=== PATIENT | female | born 1985 | race Caucasian/White ===

== ENCOUNTER → 2020-10-24 13:24 | Outpatient (BNVA) | payer MEDICARE, MEDICAID, SELFPAY | PROVIDERS: Visit Provider Psychiatry & Neurology Psychiatry | DX: F32.9 Major depressive disorder, single episode, unspecified (principal); F19.10 Other psychoactive substance abuse, uncomplicated; Z78.9 Other specified health status; Z59.0 Homelessness | CPT/HCPCS: 90792 ==

== ENCOUNTER 2020-11-13 14:54 | Emergency (ER) | payer MEDICARE, MEDICAID, SELFPAY ==
[2020-11-13 15:22] VITALS: BP 124/86; PULSE 99; RESP 18; TEMP 37.2; O2SAT 95; BMI 40.7
--- NOTE | 2020-11-13 15:31 | W.ED.GENADLT ---
HPI - General Adult General: Chief complaint: General Medical Stated complaint: NAUSEA Time Seen by Provider: 11/13/20 15:31 History of Present Illness: HPI narrative: Patient is a 35-year-old female comes to the ED with malaise and fatigue. Patient says last night she started feeling some generalized fatigue and weakness and just not feeling well. She reports having pain all over her body. She had some nausea last night but it resolved. Patient is from [facility] and has a history of PTSD, major depressive disorder and substance abuse. Patient keeps talking about her brain feeling very quiet. She does not give a lot of details on her symptoms. Patient says she just had her Adderal dose increased up to 3 times a day and started that dosing yesterday. Pt was originally taking adderal once a day. After her third dose of adderall last night is when her symptoms started. She thinks the increased dose of adderral is causing her symptoms. She denies any auditory or visual hallucinations, SI or HI. Patient states she does not want to be admitted into the Neuropsych Unit. Associated symptoms: Reports malaise; Deny chest pain, dyspnea, headache(s), nausea, rash, palpitations or vomiting Review of Systems Const: Reports: fatigue, malaise and other (pain all over her body); Denies: fever(s) or chills Eyes: Denies: change in vision or eye discomfort ENMT: Denies: throat pain, odynophagia, nasal discharge or nasal congestion Card: Denies: chest pain, palpitations, edema, swelling of feet/ankles, dyspnea on exertion or orthopnea Resp: Denies: dyspnea, productive cough or non-productive cough GI: Denies: abdominal pain, nausea, vomiting, diarrhea, constipation or hematochezia : Denies: flank pain, dysuria or hematuria Musc: Denies: neck pain, back pain or extremity swelling Skin/Breast: Denies: rash or new lesions Neuro: Denies: headache(s), numbness in extremities or weakness in extremities Psych: Reports: anxiety; Denies: visual hallucinations, auditory hallucinations, tactile hallucinations, suicidal ideation or homicidal ideation PFS ED PFSH: Medical History History of incarceration Homeless MDD (major depressive disorder) Substance abuse Physical Exam Const: COMMON NORMALS: no acute distress, patient oriented x3 and alert GENERAL APPEARANCE: cooperative and comfortable HENMT: COMMON NORMALS: normocephalic HEAD & SCALP: normocephalic MOUTH: Normal oral and palatal mucosa present THROAT: posterior oropharynx normal and uvula midline Neck/C-Spine: COMMON NORMALS: supple GENERAL: Yes normal visual inspection Resp: COMMON NORMALS: normal respiratory effort, No retractions, No use of accessory muscles and clear to auscultation bilaterally AUSCULTATION: clear to auscultation bilaterally Cardio: COMMON NORMALS: regular rate, regular rhythm, S1 normal heart sound present, S2 normal heart sound present, No gallops present (Cardio), No clicks present (Cardio), No murmurs present (Cardio) and Peripheral pulses 2+ throughout RATE: regular rate RHYTHM: regular rhythm HEART SOUNDS: S1 normal heart sound present and S2 normal heart sound present PERIPHERAL PULSES: Peripheral pulses 2+ throughout GI: COMMON NORMALS: Normal to inspection, nondistended, normoactive bowel sounds present, Soft to palpation, non-tender and no masses PALPATION: Yes Soft to palpation : COMMON NORMALS: Yes no CVA tenderness BLADDER/KIDNEY EXAM: Yes no CVA tenderness Back/Pelvis: COMMON NORMALS: no CVA tenderness Neuro: COMMON NORMALS: patient oriented x3 and moves all extremities SENSORIUM/ORIENTATION: Yes alert Psych: APPEARANCE: Yes grossly normal ATTITUDE: Yes engaged ACTIVITY/MOTOR BEHAVIOR: Yes appropriate eye contact and Yes restless SPEECH: Yes excessive and Yes rapid MOOD & AFFECT: Yes anxious THOUGHT PROCESS: Flight of ideas present THOUGHT CONTENT: No Suicidality present, No Homicidality present and No Hallucination(s) present ATTENTION/CONCENTRATION: Yes attention grossly intact and Yes concentration grossly intact MEMORY/COGNITION: Yes memory grossly intact and Yes cognition grossly intact INSIGHT: Good insight present (Psych) JUDGEMENT: Good judgement present (Psych) OTHER: Patient is talking a lot, but when asked specific directed questions she answers accordingly. Skin: GENERAL SKIN EXAM: dry skin Course Vital Signs: Vital signs: Vital Signs Temperature 99.0 F 11/13/20 15:38 Pulse Rate 99 11/13/20 15:38 Respiratory Rate 18 11/13/20 15:38 Blood Pressure 124/86 11/13/20 15:38 Pulse Oximetry 95 11/13/20 15:38 MDM - General Adult MDM Narrative: Medical decision making narrative: Patient is a 35-year-old female comes to the ED with malaise. Patient said her symptoms started yesterday after she took her increased dose of dextroamphetamine. Patient says before yesterday she was only taking dextroamphetamine once a day and doctor increased her dose to 3 times a day and yesterday was the first time she took 3 doses a day. After third dose she reports feeling some nausea, restless, generalized body pain and more anxious. Here in the ED patient denies any SI, HI or hallucinations. She appears nontoxic and in no acute distress. She does appear to have some ache anxiety and a little fidgety and her speech is rapid. Patient was given a dose of Ativan and some Tylenol for her pain here in the ED and her symptoms improved. Patient told to contact her behavioral health doctor who prescribes the dextroamphetamine tomorrow morning to discuss dose change. I told patient do not take any dose of dextroamphetamine after discharge until she contacts her doctor tomorrow morning. Patient understood and agreed with plan. Lab Data: Attestation: I reviewed the patient's lab results. Labs: Lab Results 11/13/20 11/13/20 11/13/20 Range/Units 16:23 16:23 16:23 WBC 8.1 (4.0-10.0) 10^3/ uL RBC 4.36 (4.1-5.3) 10^6/u L Hgb 12.7 (11.5-15.3) g/dL Hct 39.8 (37.0-47.0) % MCV 91.3 (81-99) fL MCH 29.1 (28.0-34.0) pg MCHC 31.9 (30.0-36.0) g/dL RDW 13.9 (12.1-15.1) % Plt Count 325 (130-400) 10^3/c mm MPV 11.7 H (7.4-10.4) fL Neut % (Auto) 65.3 % Lymph % (Auto) 25.2 % [place] % (Auto) 7.4 % Eos % (Auto) 1.0 % Baso % (Auto) 0.7 % Neut # (Auto) 5.30 (1.8-7.7) 10^3/u L Lymph # (Auto) 2.0 (0.8-4.8) 10^3/u L [place] # (Auto) 0.6 (0.2-0.9) 10^3/u L Eos # (Auto) 0.1 (0.0-0.8) 10^3/u L Baso # (Auto) 0.1 (0.0-0.1) 10^3/u L Nucleated RBC % (a uto) 0 % Nucleated RBCs # 0.0 /100WBC Sodium 139 (136-145) mmol/L Potassium 3.8 (3.5-5.1) mmol/L Chloride 104 (98-107) mmol/L Carbon Dioxide 24 (22-29) mmol/L Anion Gap 14.8 (5-19) BUN 7 (6-20) mg/dL Creatinine 0.6 (0.5-0.9) mg/dL GFR Calculation 113.1 (90-130) mL/min Glucose 99 (65-115) mg/dL Calculated Osmolal ity 286 (285-295) mOsm/k g Calcium 9.1 (8.5-10.5) mg/dL Total Bilirubin 0.4 (0.15-1.2) mg/dL AST 22 (0-32) U/L ALT 17 (0-33) U/L Alkaline Phosphata se 92 (35-105) IU/L Total Protein 7.5 (6.6-8.7) g/dL Albumin 4.6 (3.5-5.2) g/dL Globulin 2.9 (1.3-4.6) g/dL Lipase 18 (13-60) U/L HCG, Qual Negative (Negative) Discharge Plan Discharge Patient Disposition: Home Clinical Impression: Medication adverse effect Qualifiers: Encounter type: initial encounter Qualified Code(s): T50.905A - Adverse effect of unspecified drugs, medicaments and biological substances, initial encounter Condition: Stable Prescriptions: No Action dextroamphetamine-amphetamine [Adderall XR] 20 mg capsule,extended release 24hr 20 mg PO TID RF: 0 amitriptyline 100 mg tablet 200 mg PO .HS 30 Days Qty: 60 RF: 3 clonazepam [Klonopin] 2 mg tablet 1 mg PO BID RF: 0 duloxetine [Cymbalta] 60 mg capsule,delayed release(DR/EC) 60 mg PO DAILY 30 Days Qty: 30 RF: 3 Discharge Orders: Discharge ED (Routine); Ordered 11/13/20 Ordered By: Boom Srinivasan Discharge Diet: Regular Discharge Activity: Increase activity as tolerated Patient Instructions: Adverse Drug Reaction (ED) Activity Restrictions/Additional Instructions: Contact Behavioral Health doctor tomorrow morning to discuss your symptoms after increase in Dextroamphetemine medication and reducing dose. You can go back to taking Single daily dose of dextroamphetamine today and contact your doctor tomorrow. Continue taking all other home medications as prescribed. Return to ED for reevaluation, if you have any worsening symptoms. Coding Level of Care Code ED Business Partner for Daryl Fwalex Exam Comprehensive
[2020-11-13 15:38] VITALS: BP 124/86; PULSE 99; RESP 18; TEMP 37.2; O2SAT 95
[2020-11-13 16:50] LABS: Basophils # 0.1 10^3/uL (0.0-0.1); Basophils % 0.7 %; Eosinophils # 0.1 10^3/uL (0.0-0.8); Hematocrit 39.8 % (37.0-47.0); Hemoglobin 12.7 g/dL (11.5-15.3); Lymphocytes % 25.2 %; Mean Corpuscular HGB Conc 31.9 g/dL (30.0-36.0); Mean Corpuscular Hemoglobin 29.1 pg (28.0-34.0); Mean Corpuscular Volume 91.3 fL (81-99); Mean Platelet Volume 11.7 fL (7.4-10.4); Monocytes # 0.6 10^3/uL (0.2-0.9); Monocytes % 7.4 %; Neutrophils % 65.3 %; Nucleated Red Blood Cells % 0 %; Platelet Count 325 10^3/cmm (130-400); Red Blood Count 4.36 10^6/uL (4.1-5.3); Red Cell Distribution Width 13.9 % (12.1-15.1); White Blood Count 8.1 10^3/uL (4.0-10.0)
[2020-11-13 17:30] LABS: HCG, Serum Qual Negative (Negative)
[2020-11-13] MEDS: LORazepam 2 mg Tablet PO (17:38)
[2020-11-13 17:39] LABS: Alanine Aminotransferase 17 U/L (0-33); Albumin Level 4.6 g/dL (3.5-5.2); Alkaline Phosphatase 92 IU/L (35-105); Anion Gap 14.8 (5-19); Aspartate Amino Transferase 22 U/L (0-32); Blood Urea Nitrogen 7 mg/dL (6-20); Calcium 9.1 mg/dL (8.5-10.5); Carbon Dioxide 24 mmol/L (22-29); Chloride 104 mmol/L (98-107); Globulin 2.9 g/dL (1.3-4.6); Glomerular Filtration Rate 113.1 mL/min (90-130); Glucose 99 mg/dL (65-115); Lipase 18 U/L (13-60); Osmolality Calculated 286 mOsm/kg (285-295); Potassium 3.8 mmol/L (3.5-5.1); Sodium 139 mmol/L (136-145); Total Bilirubin 0.4 mg/dL (0.15-1.2); Total Protein 7.5 g/dL (6.6-8.7)
[2020-11-13] MEDS: acetaminophen 500 mg Tablet 1000 MG PO (17:39)
== END 2020-11-13 18:01 | disposition home or self-care (01) ==
PROVIDERS: Emergency Provider Physician Assistant
DX: T88.7XXA Unspecified adverse effect of drug or medicament, initial encounter (principal); T50.905A Adverse effect of unspecified drugs, medicaments and biological substances, initial encounter
CPT/HCPCS: 80053; 83690; 84703; 85025; 99283

== ENCOUNTER 2020-11-16 15:49 | Emergency (ER) | payer MEDICARE, MEDICAID, SELFPAY ==
--- NOTE | 2020-11-16 16:02 | ED_ITS ---
HPI - Extremity Problem General: Chief complaint: Extremity Problem,Nontraumatic Stated complaint: RIGHT HAND PAIN Time Seen by Provider: 11/16/20 15:55 Source: patient and EMS Mode of arrival: EMS Limitations: no limitations History of Present Illness: HPI Narrative: Patient is a 35-year-old female who presents via EMS for complaints of right hand and wrist pain. Patient states she has been noticing pain and intermittent numbness mainly in the evenings and at night but states this morning she woke up and pain was severe. 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 She has not had any injury or trauma. She has not noticed any changes in color or temperature to the extremity. Associated symptoms: Deny chest pain, fever(s) or rash Review of Systems Const: Denies: fever(s), chills, body aches, fatigue or malaise Card: Denies: chest pain Resp: Denies: dyspnea Musc: Reports: extremity pain and joint pain; Denies: extremity swelling, joint swelling, joint redness or joint warmth Skin/Breast: Denies: rash Neuro: Reports: numbness in extremities (intermittently to R hand/wrist) and sensory changes; Denies: weakness in extremities PFSH ED PFSH: Medical History History of incarceration Homeless MDD (major depressive disorder) Substance abuse Physical Exam Const: COMMON NORMALS: no acute distress, patient oriented x3, no limitations and alert GENERAL APPEARANCE: cooperative NUTRITIONAL APPEARANCE: obese ORIENTATION/CONSCIOUSNESS: Yes awake, Yes oriented to person, Yes oriented to place and Yes oriented to time HENMT: COMMON NORMALS: normocephalic and atraumatic HEAD & SCALP: normocephalic and atraumatic Extremity: GENERAL: Yes normal exam except as noted OTHER: no redness/pallor or swelling noted to R hand/wrist; she does have a positive Tinels' sign; cap refill and pulses normal Neuro: TOMÁS COMA SCALE: document GCS findings Tomás coma scale eye opening: Spontaneous Roxie coma scale verbal response: Orientated Roxie coma scale motor response: Obey commands Roxie coma scale total score: 15 COMMON NORMALS: patient oriented x3, no focal motor deficits (none to R UE; chronic deficits to L UE) and no sensory deficits noted (none to R UE) SENSORIUM/ORIENTATION: Yes alert, Yes oriented to person, Yes oriented to place and Yes oriented to time OTHER: chronic L UE deficts from previous stroke per patient Skin: COMMON NORMALS: no rashes or lesions noted GENERAL SKIN EXAM: no rashes or lesions noted TRAUMA: no lacerations or abrasions Course Vital Signs: Vital signs: Vital Signs Temperature 98.6 F 11/16/20 16:04 Pulse Rate 82 11/16/20 16:04 Respiratory Rate 16 11/16/20 16:04 Blood Pressure 134/91 11/16/20 16:04 Pulse Oximetry 99 11/16/20 16:04 MDM - Extremity (Nontraumatic) MDM Narrative: Medical decision making narrative: History and physical exam is consistent with carpal tunnel vs tendonitis. Will be placed in velcro wrist splint and placed on NSAIDS. Recommend follow up with PCP in 1-2 wls is symptoms persist. Discharge Plan Discharge Patient Disposition: Home Clinical Impression: Carpal tunnel syndrome of right wrist Condition: Stable Prescriptions: New diclofenac sodium 50 mg tablet,delayed release (DR/EC) 50 mg PO Q12H PRN (Reason: pain) Qty: 20 RF: 0 No Action dextroamphetamine-amphetamine [Adderall XR] 20 mg capsule,extended release 24hr 20 mg PO TID RF: 0 amitriptyline 100 mg tablet 200 mg PO .HS 30 Days Qty: 60 RF: 3 clonazepam [Klonopin] 2 mg tablet 1 mg PO BID RF: 0 duloxetine [Cymbalta] 60 mg capsule,delayed release(DR/EC) 60 mg PO DAILY 30 Days Qty: 30 RF: 3 Discharge Orders: Discharge ED (Routine); Ordered 11/16/20 Ordered By: Dalila Thomas Patient Instructions: Carpal Tunnel Syndrome (ED) Activity Restrictions/Additional Instructions: As we discussed you need to wear your splint as much as possible. Please follow-up with your primary care provider in 2 weeks for re-evaluation. Take anti-inflammatory medication as directed and with food. Coding Level of Care Code ED Division Manager for Daryl Trevino
[2020-11-16 16:04] VITALS: BP 134/91; PULSE 82; RESP 16; TEMP 37; O2SAT 99; BMI 42.3
== END 2020-11-16 16:49 | disposition home or self-care (01) ==
PROVIDERS: Emergency Provider Physician Assistant
DX: G56.01 Carpal tunnel syndrome, right upper limb (principal)
CPT/HCPCS: 29125; 99282

== ENCOUNTER 2020-11-21 15:46 | Inpatient (IN) | payer MEDICARE, MEDICAID, SELFPAY ==
[2020-11-21 16:08] VITALS: BP 130/84; PULSE 106; RESP 16; TEMP 36.6; O2SAT 96; BMI 42.3
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
[2020-11-21 18:20] VITALS: PULSE 110; RESP 20; O2SAT 98
--- NOTE | 2020-11-21 18:21 | PC.NURSE ---
pt refusing to leave BP cuff on for blood pressure.
[2020-11-21 19:00] LABS: Basophils # 0.1 10^3/uL (0.0-0.1); Basophils % 0.9 %; Eosinophils # 0.1 10^3/uL (0.0-0.8); Eosinophils % 1.2 %; Hemoglobin 13.3 g/dL (11.5-15.3); Lymphocytes # 2.3 10^3/uL (0.8-4.8); Lymphocytes % 34.2 %; Mean Corpuscular HGB Conc 31.7 g/dL (30.0-36.0); Mean Corpuscular Volume 91.5 fL (81-99); Mean Platelet Volume 11.8 fL (7.4-10.4); Monocytes # 0.5 10^3/uL (0.2-0.9); Neutrophils # 3.78 10^3/uL (1.8-7.7); Neutrophils % 56.7 %; Nucleated Red Blood Cells % 0 %; Platelet Count 356 10^3/cmm (130-400); Red Blood Count 4.59 10^6/uL (4.1-5.3); Red Cell Distribution Width 14.3 % (12.1-15.1); White Blood Count 6.7 10^3/uL (4.0-10.0)
[2020-11-21 19:31] VITALS: BP 145/78; PULSE 78; RESP 18; O2SAT 100
--- NOTE | 2020-11-21 19:41 | PC.NURSE ---
Pt requesting staff call son. Pt son lives in a facility and she calls him daily. Message was left with staff at [phone], per pt request.
[2020-11-21 19:50] LABS: Alanine Aminotransferase 16 U/L (0-33); Albumin Level 4.4 g/dL (3.5-5.2); Alkaline Phosphatase 71 IU/L (35-105); Aspartate Amino Transferase 15 U/L (0-32); Blood Urea Nitrogen 8 mg/dL (6-20); Carbon Dioxide 25 mmol/L (22-29); Chloride 101 mmol/L (98-107); Globulin 3.3 g/dL (1.3-4.6); Glomerular Filtration Rate 113.1 mL/min (90-130); Glucose 98 mg/dL (65-115); Osmolality Calculated 280 mOsm/kg (285-295); Sodium 136 mmol/L (136-145); Total Bilirubin 0.3 mg/dL (0.15-1.2); Total Protein 7.7 g/dL (6.6-8.7)
[2020-11-21 19:57] LABS: Acetaminophen < 5.0 ug/mL (10-30); Salicylate < 0.3 mg/dL (3-10)
[2020-11-21 20:00] VITALS: BP 138/78; PULSE 77; RESP 18; O2SAT 97
[2020-11-21 21:22] VITALS: BP 115/64; PULSE 85; RESP 18; O2SAT 100
[2020-11-21 21:40] LABS: Amphetamines Screen Urine Positive (Negative); Barbiturates Screen Urine Negative (Negative); Benzodiazepines Screen Urine Negative (Negative); Cocaine Screen Urine Negative (Negative); Opiate Screen Urine Negative (Negative); PCP Screen Urine Negative (Negative); THC Screen Urine Negative (Negative)
[2020-11-21 21:46] VITALS: BP 115/64; PULSE 85; RESP 18; TEMP 36.6; O2SAT 100
[2020-11-22 00:03] VITALS: BP 118/65; PULSE 101; RESP 22; TEMP 36.4; O2SAT 97
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
[2020-11-22 06:00] VITALS: O2SAT 97
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
[2020-11-22] MEDS: duloxetine 60 mg Capsule PO (09:39)
[2020-11-22] MEDS: CLONazepam 1 mg Tablet PO ×2 (09:39→17:39)
[2020-11-22 11:16] LABS: Basophils # 0.1 10^3/uL (0.0-0.1); Basophils % 1.1 %; Eosinophils # 0.1 10^3/uL (0.0-0.8); Hematocrit 37.8 % (37.0-47.0); Lymphocytes # 1.6 10^3/uL (0.8-4.8); Mean Corpuscular HGB Conc 31.7 g/dL (30.0-36.0); Mean Corpuscular Hemoglobin 28.6 pg (28.0-34.0); Mean Corpuscular Volume 90.2 fl (81-99); Mean Platelet Volume 12.1 fL (7.4-10.4); Monocytes # 0.4 10^3/uL (0.2-0.9); Monocytes % 8.4 %; Neutrophils % 53.3 %; Nucleated Red Blood Cells % 0 %; Platelet Count 249 10^3/cmm (130-400); Red Blood Count 4.19 10^6/uL (4.1-5.3); Red Cell Distribution Width 14.3 % (12.1-15.1); White Blood Count 4.5 10^3/uL (4.0-10.0)
[2020-11-22 11:44] LABS: Alanine Aminotransferase 13 U/L (0-33); Albumin Level 3.7 g/dL (3.5-5.2); Alkaline Phosphatase 62 IU/L (35-105); Anion Gap 9.6 (5-19); Aspartate Amino Transferase 12 U/L (0-32); Blood Urea Nitrogen 10 mg/dL (6-20); Calcium 8.6 mg/dL (8.5-10.5); Carbon Dioxide 27 mmol/L (22-29); Chloride 106 mmol/L (98-107); Globulin 2.8 g/dL (1.3-4.6); Glomerular Filtration Rate 139.6 mL/min (90-130); Glucose 89 mg/dL (65-115); Osmolality Calculated 285 mOsm/kg (285-295); Potassium 4.6 mmol/L (3.5-5.1); Sodium 138 mmol/L (136-145); Total Bilirubin 0.2 mg/dL (0.15-1.2); Total Protein 6.5 g/dL (6.6-8.7)
[2020-11-22 14:00] VITALS: BP 114/65; PULSE 77; RESP 16; TEMP 36.5; O2SAT 96
[2020-11-22] MEDS: ibuprofen 600 mg Tablet PO (15:53)
[2020-11-22 20:11] VITALS: BP 103/66; PULSE 83; RESP 18; TEMP 36.6; O2SAT 95
[2020-11-22] MEDS: amitriptyline 25 mg Tablet 200 MG PO (20:28)
[2020-11-23 06:00] VITALS: BP 113/66; PULSE 73; RESP 16; TEMP 36.7; O2SAT 98
[2020-11-23] MEDS: CLONazepam 1 mg Tablet PO ×2 (08:09→21:39)
[2020-11-23] MEDS: duloxetine 60 mg Capsule PO (08:09)
[2020-11-23 14:00] VITALS: BP 113/66; PULSE 73; RESP 16; TEMP 36.7; O2SAT 98
--- NOTE | 2020-11-23 17:26 | P.PN_ITS ---
Subjective NPU Subjective: Interval history: Kailee presents today reporting that she in fact thinks she stopped the Adderall but that she was going to stop it. She reports that when her Adderall was increased she started having concerning symptoms. So she was not planning on taking it anymore which would explain the continued positive UDS. We discussed concerns about her account of the story given her significant history of addiction. We discussed the risk benefits and alternatives of initiating Strattera which she reports she has had in the past with some success and she understood agreed to proceed as documented in this note. Mental Status Exam MSE Comments: This is an obese versus morbidly obese white female with hospital scrubs on with limited grooming and eye contact. No abnormal movements except for mild psychomotor retardation. More cooperative with exam in mild distress. Speech was more normal rate and volume. Mood described as okay I guess, affect subdued and somewhat irritable. Thought process organized, thought content: Patient denied suicidal or homicidal ideation currently there were no delusions reported or noted, she denies any auditory or visual elucidation. Attention and concentration were intact and memory was unreliable but none were formally tested. She is alert and oriented x3. Insight and judgment are impaired and impulse control is limited. Vitals/I&O/Wt Last Vital Signs Temp 98.6 F 11/23/20 18:18 Pulse 91 11/23/20 18:18 Resp 18 11/23/20 18:18 BP 118/70 11/23/20 18:18 Pulse Ox 99 11/23/20 18:18 Weight last 48 hrs Weight 122.47 kg Data NPU : 11/22/20 11:00 11/22/20 11:00 A&P Additional A&P Information (1) Carpal tunnel syndrome of right wrist: (2) Psychosis: (3) Homicidal ideations: (4) Homeless: (5) History of incarceration: (6) Substance abuse: (7) MDD (major depressive disorder): This is a 35-year-old white female with a long history of mental health, addiction and legal struggles who presents with question of psychosis, possible amphetamine versus methamphetamine overuse with significant services in place. 1. Continue current medication. Agree with discontinuation of Adderall, will start Strattera 40 mg every morning with meals in the morning with a plan to titrate to 80 mg in 1 week. 2. Continue every 15 minute checks for safety. 3. Encourage individual, group and milieu therapies. 4. Encourage sober living treatment after discharge at the highest level of care to which he is willing to commit. She is part of a program at [facility] and has a fairly robust outpatient treatment regimen to deal with her significant challenges. Involuntary Hold Information 96 Hour Hold: 96 Hour Hold Ending Date: 11/27/20 96 Hour Hold Ending Time: 18:40 Attestations NPU Medical Necessity Statement*: Inpatient hospitalization is medically necessary and the clinically appropriate intervention at this time. We will monitor medications and make changes as indicated. Likely length of stay 2-4 days. Coding Level of Care Code Acute Cnc Lathe Programmer for Daryl Trevino
[2020-11-23 18:18] VITALS: BP 118/70; PULSE 91; RESP 18; TEMP 37; O2SAT 99
[2020-11-23] MEDS: amitriptyline 25 mg Tablet 200 MG PO (21:40)
[2020-11-24 05:20] VITALS: BMI 42.3
[2020-11-24 06:00] VITALS: BP 119/73; PULSE 68; RESP 16; TEMP 36.5; O2SAT 98
[2020-11-24] MEDS: CLONazepam 1 mg Tablet PO ×2 (08:27→21:01)
[2020-11-24] MEDS: duloxetine 60 mg Capsule PO (08:27)
[2020-11-24] MEDS: atomoxetine 40 mg Capsule PO (08:27)
[2020-11-24] MEDS: ibuprofen 600 mg Tablet PO (12:02)
--- NOTE | 2020-11-24 13:14 | P.PN_ITS ---
Subjective NPU Subjective: Interval history: Kailee presents today endorsing improvement overall. She endorses not being as tired as she is been since admission. She began discussing what discharge might look like. We reviewed the fact that she is on a hold. She reports that her suicidal thinking is resolving we agreed to have her [facility] program liaisons connect with her and about safety for discharge. Mental Status Exam MSE Comments: This is an obese versus morbidly obese white female with hospi vern scrubs on with limited grooming and eye contact. No abnormal movements except for mild psychomotor retardation. More cooperative with exam in mild distress. Speech was more normal rate and volume. Mood described as okay I guess, affect subdued and somewhat irritable. Thought process organized, thought content: Patient denied suicidal or homicidal ideation currently there were no delusions reported or noted, she denies any auditory or visual elucidation. Attention and concentration were intact and memory was unreliable but none were formally tested. She is alert and oriented x3. Insight and judgment are impaired and impulse control is limited. Vitals/I&O/Wt Last Vital Signs Temp 97.7 F 11/24/20 06:00 Pulse 68 11/24/20 06:00 Resp 16 11/24/20 06:00 BP 119/73 11/24/20 06:00 Pulse Ox 98 11/24/20 06:00 11/23/20 11/24/20 11/24/20 22:59 06:59 14:59 Intake Total 240 / 240 Balance 240 / 240 Weight last 48 hrs Weight 122.47 kg Data NPU : 11/22/20 11:00 11/22/20 11:00 A&P Additional A&P Information (1) Carpal tunnel syndrome of right wrist: (2) Psychosis: (3) Homicidal ideations: (4) Homeless: (5) History of incarceration: (6) Substance abuse: (7) MDD (major depressive disorder): This is a 35-year-old white female with a long history of mental health, addiction and legal struggles who presents with question of psychosis, possible amphetamine versus methamphetamine overuse with significant services in place. 1. Continue current medication. 2. Continue every 15 minute checks for safety. 3. Encourage individual, group and milieu therapies. 4. Encourage sober living treatment after discharge at the highest level of care to which he is willing to commit. She is part of a program at [facility] and has a fairly robust outpatient treatment regimen to deal with her significant challenges. Involuntary Hold Information 96 Hour Hold: 96 Hour Hold Ending Date: 11/27/20 96 Hour Hold Ending Time: 18:40 Attestations NPU Medical Necessity Statement*: Inpatient hospitalization is medically necessary and the clinically appropriate intervention at this time. We will monitor medications and make changes as indicated. Likely length of stay 1-3 days. Coding Level of Care Code Acute High Risk Ob for Daryl Trevino
[2020-11-24 14:16] VITALS: BP 122/66; PULSE 88; RESP 16; TEMP 36.8; O2SAT 99
[2020-11-24] MEDS: diphenhydrAMINE 50 mg Capsule PO (17:14)
[2020-11-24] MEDS: amitriptyline 25 mg Tablet 200 MG PO (21:01)
[2020-11-24 21:51] VITALS: BP 107/59; PULSE 99; RESP 19; TEMP 37.2; O2SAT 98
[2020-11-25 06:00] VITALS: BP 131/75; PULSE 84; RESP 17; TEMP 36.9; O2SAT 98
[2020-11-25] MEDS: atomoxetine 40 mg Capsule PO (08:00)
[2020-11-25] MEDS: CLONazepam 1 mg Tablet PO ×2 (08:00→21:18)
[2020-11-25] MEDS: duloxetine 60 mg Capsule PO (08:00)
[2020-11-25 14:00] VITALS: BP 149/84; PULSE 92; RESP 17; TEMP 37; O2SAT 98
--- NOTE | 2020-11-25 14:14 | PM.NPN ---
Subjective NPU Subjective: Interval history: Kailee presents today reporting that she is feeling better each day. She denies any problems with the Strattera and understands the titration schedule that is being proposed. She is endorsing feeling she can contract for safety outside of the hospital. Her outpatient treatment team reports that they could support discharge in the morning. Mental Status Exam MSE Comments: This is an obese versus morbidly obese white female with hospital scrubs on with limited grooming and eye contact. No abnormal movements except for mild psychomotor retardation. More cooperative with exam in no acute distress. Speech was more normal rate and volume. Mood described as better, affect less subdued. Thought process organized, thought content: Patient denied suicidal or homicidal ideation currently there were no delusions reported or noted, she denies any auditory or visual elucidation. Attention and concentration were intact and memory was more reliable but none were formally tested. She is alert and oriented x3. Insight and judgment are limited, but improving and impulse control is limited. Vitals/I&O/Wt Last Vital Signs Temp 98.5 F 11/25/20 06:00 Pulse 84 11/25/20 06:00. Resp 17 11/25/20 06:00 BP 131/75 11/25/20 06:00 Pulse Ox 98 11/25/20 06:00 Data NPU : 11/22/20 11:00 11/22/20 11:00 A&P Additional A&P Information (1) Carpal tunnel syndrome of right wrist: (2) Psychosis: (3) Homicidal ideations: (4) Homeless: (5) History of incarceration: (6) Substance abuse: (7) MDD (major depressive disorder): This is a 35-year-old white female with a long history of mental health, addiction and legal struggles who presents with question of psychosis, possible amphetamine versus methamphetamine overuse with significant services in place. 1. Continue current medication. 2. Continue every 15 minute checks for safety. 3. Encourage individual, group and milieu therapies. 4. Encourage sober living treatment after discharge at the highest level of care to which he is willing to commit. 5. Plan for discharge in the morning. Involuntary Hold Information 96 Hour Hold: 96 Hour Hold Ending Date: 11/27/20 96 Hour Hold Ending Time: 18:40 Attestations NPU Medical Necessity Statement*: Inpatient hospitalization is medically necessary and the clinically appropriate intervention at this time. We will monitor medications and make changes as indicated. Likely length of stay 1-2 days. Coding Level of Care Code Acute Pre Wave Assembler for Daryl Trevino
[2020-11-25 20:17] VITALS: BP 128/64; PULSE 89; RESP 16; TEMP 36.8; O2SAT 92
[2020-11-25] MEDS: amitriptyline 25 mg Tablet 200 MG PO (21:18)
[2020-11-26 05:56] VITALS: BP 110/68; PULSE 79; RESP 18; TEMP 36.3; O2SAT 98
[2020-11-26] MEDS: duloxetine 60 mg Capsule PO (08:29)
[2020-11-26] MEDS: CLONazepam 1 mg Tablet PO (08:29)
[2020-11-26] MEDS: atomoxetine 40 mg Capsule PO (08:30)
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
[2020-11-26 12:31] VITALS: BP 110/68; PULSE 79; RESP 18; TEMP 36.3; O2SAT 98
--- NOTE | 2020-11-26 12:31 | NPU.GN ---
[facility] Topic: Depression Bingo / Worrisome thoughts General Mood of Group: Kailee participated because she was on 96 hour hold she will possibly DC today and needs referral to [facility].
== END 2020-11-26 14:38 | disposition home or self-care (01) | DRG 885 ==
LOC: ER 18:10 → NP 21:00
PROVIDERS: Admitting Provider Psychiatry & Neurology Psychiatry; Emergency Provider Emergency Medicine; Visit Provider Psychiatry & Neurology Psychiatry
DX: F29 Unspecified psychosis not due to a substance or known physiological condition (principal); Z68.41 Body mass index [BMI] 40.0-44.9, adult; F32.9 Major depressive disorder, single episode, unspecified; F90.9 Attention-deficit hyperactivity disorder, unspecified type; F15.90 Other stimulant use, unspecified, uncomplicated; Z59.0 Homelessness; Z86.73 Personal history of transient ischemic attack (TIA), and cerebral infarction without residual deficits; E66.01 Morbid (severe) obesity due to excess calories; G56.01 Carpal tunnel syndrome, right upper limb; R45.850 Homicidal ideations
CPT/HCPCS: 36415; 80053; 80306; 80307; 85025; 99285; Q0163

== ENCOUNTER 2020-12-29 11:46 | Emergency (ER) | payer MEDICARE, MEDICAID, SELFPAY ==
[2020-12-29 11:50] VITALS: BP 162/122; PULSE 93; RESP 14; TEMP 36.6; O2SAT 100; BMI 39.1
--- NOTE | 2020-12-29 11:55 | ED_ITS ---
HPI - Head Injury General: Chief complaint: Fall Stated complaint: HEAD PAIN S/P FALL FROM CHAIR Time Seen by Provider: 12/29/20 11:52 Source: patient Mode of arrival: EMS Limitations: no limitations History of Present Illness: HPI Narrative: 35-year-old female presents to the ER today via EMS after a fall this a.m. Patient reports she was sitting on a ledge when she shifted her balance too much and fell to the left, hitting head on floor tiles in wheelchair. Patient has a history of a CVA with left-sided paralysis. Patient reports she was able to get up but immediately has noticed pain in the left side of her head. Patient reports dizziness and seeing stars but denies any blurry vision or double vision. Patient reports she also has pain in her left side from the left shoulder to the left calf. She has normal range of motion of the left lower leg and that is at her baseline however she has pain in the area of the clavicle. Patient has total paralysis of the left upper arm but is nontender when palpated. Patient denies any prior head injury. Patient does not take any blood thinners. Patient denies ear pain, congestion, runny nose, sore throat, chest pain, shortness of breath, nausea, vomiting, diarrhea, constipation, change in bowel or bladder habits. MD Complaint: head injury Onset (ago): hour(s) Mechanism of Injury: fall Place: home Loss of Consciousness: no Location of injury: occipital Quality: throbbing Other Injuries: upper extremity (Left clavicle/shoulder) Associated symptoms: Deny nausea, neck pain or vomiting Review of Systems Const: Reports: body aches; Denies: fever(s) or chills Eyes: Reports: change in vision; Denies: blurry vision ENMT: Denies: throat pain, nasal discharge or nasal congestion Card: Denies: chest pain or palpitations Resp: Denies: dyspnea or wheezing GI: Denies: abdominal pain, nausea, vomiting, diarrhea or constipation Musc: Reports: extremity pain (L clavicle/shoulder); Denies: neck pain or back pain Skin/Breast: Denies: rash Neuro: Reports: headache(s) and dizziness PFS ED PFSH: Medical History History of incarceration Homeless MDD (major depressive disorder) Substance abuse Physical Exam Const: COMMON NORMALS: no acute distress and patient oriented x3 GENERAL APPEARANCE: other (paralysis of L arm) NUTRITIONAL APPEARANCE: obese ORIENTATION/CONSCIOUSNESS: Yes awake HENMT: COMMON NORMALS: normocephalic, atraumatic, TM's normal bilaterally, Normal external nose present and Normal nasal mucous membranes and turbinates present HEAD & SCALP: normocephalic and atraumatic; no contusion FACE & SINUS: normal facial exam NOSE: Normal external nose present and Normal nasal mucous membranes and turbinates present TYMPANIC MEMBRANE: TM's normal bilaterally THROAT: posterior oropharynx normal Eye: COMMON NORMALS: Equal, round and reactive pupils present, EOMs intact bilaterally and conjunctivae normal GENERAL EYE: appearance normal, both eyes and all related structures CONJUNCTIVA: Yes conjunctivae normal PUPIL: Yes Equal, round and reactive pupils present Neck/C-Spine: COMMON NORMALS: full ROM and no lymphadenopathy Lymph: LYMPHATIC: no lymphadenopathy noted Resp: COMMON NORMALS: normal respiratory effort, No retractions and clear to auscultation bilaterally EFFORT & INSPECTION: Yes able to speak in complete sentences AUSCULTATION: clear to auscultation bilaterally Cardio: COMMON NORMALS: regular rate, regular rhythm and No murmurs present (Cardio) RATE: regular rate RHYTHM: regular rhythm GI: COMMON NORMALS: Normal to inspection, nondistended, normoactive bowel sounds present, Soft to palpation and non-tender PALPATION: Yes Soft to palpation Back/Pelvis: COMMON NORMALS: thoracic and lumbar spine normal to inspection Extremity: GENERAL: Yes normal exam except as noted LEFT UPPER EXTREMITY: Yes clavicle Left clavicle: Yes inspection (normal) and Yes palpation (tender) Neuro: COMMON NORMALS: patient oriented x3, moves all extremities (except L arm due to hx of paralysis), no focal motor deficits and no sensory deficits noted SPEECH: speech normal GAIT: Yes Unable to assess gait Psych: COMMON NORMALS: mental status grossly normal, Normal thought process present and cooperative THOUGHT PROCESS: Normal thought process present Skin: COMMON NORMALS: no rashes or lesions noted GENERAL SKIN EXAM: no rashes or lesions noted Course ED course: Patient presents after a fall this morning and hitting her head on tile in the wheelchair. Patient exam is mostly unremarkable other than mild tenderness of the left clavicle. Given history of paralysis and inability to break her fall, will go ahead with CT at this time although neuro exam is josefina l. We will also check the clavicle on x-ray to rule out any fracture as patient has paralysis to that side and pain scale is abnormal due to the paralysis. Vital Signs: Vital signs: Vital Signs Temperature 97.8 F 12/29/20 11:50 Pulse Rate 93 12/29/20 11:50 Respiratory Rate 14 12/29/20 11:50 Blood Pressure 162/122 12/29/20 11:50 Pulse Oximetry 100 12/29/20 11:50 MDM - Head Injury MDM Narrative: Medical decision making narrative: LikelyPatient presented to the ER today after falling at home and hitting head. She complained of some left clavicle pain also. CT of head was performed and is normal. Clavicle x- ray is normal. Superficial contusion versus mild concussion. Neuro exam is normal. Conservative treatment recommended. Concussion protocol including b rain rest recommended. Apply ice to area on clavicle with pain. Follow-up with PCP in 3 to 5 days. Patient verbalized understanding is in agreement with this treatment plan. Imaging Data^: CT Head: Radiologist's impression: [id number] [address] [address] Scan Report Signed Patient: Kailee Huang Unit #: [id number] : 1985 Age/Sex: 35 / F ADM Date: 12/29/20 Loc: ER Room/Bed: Attending Dr: Ordering Provider/Ordering MD: Viri Landeros Date of Service: 12/29/20 Procedure(s): CT head wo con* [id number] Accession Number(s): [id number] Report Number: [id number] PROCEDURE INFORMATION: Exam: CT Head Without Contrast Exam date and time: 12/29/2020 11:54 AM Age: 35 years old Clinical indication: Injury or trauma; Blunt trauma (contusions or hematomas); Without loss of consciousness; Patient HX: Fall frim wheelchair - HX of CVA w L sided paralysis; Additional info: Fall; HX of paralysis L side TECHNIQUE: Imaging protocol: Computed tomography of the head without contrast. Radiation optimization: All CT scans at this facility use at least one of these dose optimization techniques: automated exposure control; mA and/or kV adjustment per patient size (includes targeted exams where dose is matched to clinical indication); or iterative reconstruction. COMPARISON: No relevant prior studies available. RADIATION DOSE METRICS: Total DLP (mGy-cm): 1507.69 FINDINGS: Brain: There is extensive encephalomalacia in the territory of the right middle cerebral artery compatible with old infarct in the right frontal, parietal and temporal lobes. There is no acute hemorrhage, edema or mass effect. Cerebral ventricles: No ventriculomegaly. Enlargement of the right lateral ventricle compared to the left is compatible with ex vacuo type changes. Paranasal sinuses: Visualized sinuses are unremarkable. No fluid levels. Mastoid air cells: Visualized mastoid air cells are well aerated. Bones/joints: Postoperative changes right frontal and parietal calvarium are noted. No acute bony abnormality. Soft tissues: Unremarkable. CT/CT head wo con* [id number] IMPRESSION: No acute intracranial abnormality. Radiation Dose CTDIVOL = (mGy): DLP = 1507.69 (mGy-cm) Dictated By: Key Kendall Signed By: Key Kendall Signed Date/Time: 12/29/20 1324 Other Xray: Radiologist's impression: [address] [address] XRay Report Signed Patient: Kailee Huang Unit #: [id number] : 1985 Age/Sex: 35 / F ADM Date: 12/29/20 Loc: ER Room/Bed: Attending Dr: Ordering Provider/Ordering MD: Viri Landeros Date of Service: 12/29/20 Procedure(s): [place] [id number] Accession Number(s): [id number] Report Number: [id number] PROCEDURE INFORMATION: Exam: XR Left Clavicle, Complete Exam date and time: 12/29/2020 11:54 AM Age: 35 years old Clinical indication: Injury or trauma; Fall; Blunt trauma (contusions or hematomas); Shoulder; Left; Additional info: Fall with shoulder/clavicle pain TECHNIQUE: Imaging protocol: XR Left clavicle complete. Views: Any number of views. COMPARISON: No relevant prior studies available. FINDINGS: Bones/joints: Normal. No fracture or dislocation. The visualized glenohumeral joint and ribs are intact. Acromioclavicular joint alignment is appropriate. Soft tissues: Normal. XR/[place] [id number] IMPRESSION: No acute findings. Dictated By: Key Kendall Signed By: Key Kendall Signed Date/Time: 12/29/20 1258 DD/ 1257 Critical Care Time Critical Care Time: Critical Care Time: No Discharge Plan Discharge Patient Disposition: Home Clinical Impression: Contusion of head Qualifiers: Encounter type: initial encounter Contusion of head detail: other part of head Qualified Code(s): S00.83XA - Contusion of other part of head, initial encounter Contusion of left shoulder Qualifiers: Encounter type: initial encounter Qualified Code(s): S40.012A - Contusion of left shoulder, initial encounter Condition: Stable Prescriptions: No Action clonazepam [Klonopin] 2 mg tablet 1 mg PO BID RF: 0 duloxetine [Cymbalta] 60 mg capsule,delayed release(DR/EC) 60 mg PO DAILY 30 Days Qty: 30 RF: 3 diclofenac sodium 50 mg tablet,delayed release (DR/EC) 50 mg PO Q12H PRN (Reason: pain) Qty: 20 RF: 0 amitriptyline 100 mg tablet 200 mg PO BEDTIME RF: 0 atomoxetine 40 mg Capsule 40 mg PO 0800 30 Days Qty: 60 RF: 1 Discharge Orders: Discharge ED (Routine); Ordered 12/29/20 Ordered By: Viri Landeros Discharge Diet: Usual diet Discharge Activity: Resume usual activity Patient Instructions: Opioid Safety Activity Restrictions/Additional Instructions: Continue home medications. Apply ice to areas of pain. Tylenol alternating with Motrin for pain. Follow-up with PCP in 3 to 5 days. Return to the ER with any new or worsening symptoms. Coding Level of Care Code ED [place] Setter for Daryl Trevino Exam Comprehensive
[2020-12-29] MEDS: ketorolac 30 mg/mL INJ IM (14:44)
[2020-12-29 14:50] VITALS: BP 160/108; PULSE 88; RESP 18; O2SAT 100
== END 2020-12-29 14:51 | disposition home or self-care (01) ==
PROVIDERS: Emergency Provider Physician Assistant
DX: S00.83XA Contusion of other part of head, initial encounter (principal); S40.012A Contusion of left shoulder, initial encounter; W05.0XXA Fall from non-moving wheelchair, initial encounter; Z86.73 Personal history of transient ischemic attack (TIA), and cerebral infarction without residual deficits
CPT/HCPCS: 70450; 73000; 96372; 99283; J1885

== ENCOUNTER → 2020-12-31 10:15 | Outpatient (BNVA) | payer MEDICARE, MEDICAID, SELFPAY | PROVIDERS: Visit Provider Psychiatry & Neurology Psychiatry | DX: F32.9 Major depressive disorder, single episode, unspecified (principal); F90.9 Attention-deficit hyperactivity disorder, unspecified type; F19.10 Other psychoactive substance abuse, uncomplicated; Z78.9 Other specified health status; Z59.0 Homelessness | CPT/HCPCS: 99214 ==

== ENCOUNTER 2021-01-01 16:36 | Inpatient (IN) | payer MEDICARE, MEDICAID, SELFPAY ==
[2021-01-01] VITALS (11 sets, daily range): BP systolic 151–178; BP diastolic 83–117; PULSE 69–97; RESP 11–29; TEMP 36.4–37.2; O2SAT 96–100; BMI 42.3
--- NOTE | 2021-01-01 17:04 | PC.NURSE ---
Call to Mare with [place] [employer] for accidental overdose. Pt stated she took 8 tabs of wellbutrin 300mg from 7AM till 1200. She state she could not read the bottle so I justs keep taking them Recommendations EKG, lab and observe for upto 25 hours for 1/2 life from 10-19 hours possible 25 hours.
--- NOTE | 2021-01-01 17:49 | ECG_ITS ---
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 Measurements Intervals [place] Rate: 91 P: 45 [place]: 188 QRS: -14 QRSD: 141 T: 3 QT: 386 QTc: 477 Interpretive Statements SINUS RHYTHM LEFT BUNDLE BRANCH BLOCK [120+ ms QRS DURATION, 80+ ms Q/S IN V1/V2, 85+ ms R IN I/aVL/V5/V6] No previous ECG available for comparison Electronically Signed On 01-02-2021 0:00:13 CDT by Richa Hernandez M.D. [id number] jasper
--- NOTE | 2021-01-01 18:02 | PC.PHAR ---
PT STATES SHE TAKES CARE OF HER OWN MEDICATIONS-PT STATES SHE DOESNT TAKE ADDERALL AND STATES SHE DIDNT PICK IT UP [facility] LAST FILLED ON 12/14/20 20MG TID [facility] STATES PT PICKED UP ON 12/17/20 30D/S PER PTS DISCHARGE PACKET ON 11/26/20 THIS MEDICATION WAS DCED-NOTES ARE MADE IN THE PHARMACY COMMENTS
[2021-01-01] MEDS: sodium bicarbonate 150 MEQ in dextrose 5% 1,000 ML 100 MEQ IV (18:19)
--- NOTE | 2021-01-01 18:23 | XRR_ITS ---
PROCEDURE INFORMATION: Exam: XR Chest Exam date and time: 01/01/2021 6:23 PM Age: 35 years old Clinical indication: Other: Overdose; Additional info: Od TECHNIQUE: Imaging protocol: XR of the chest. Views: 1 view. COMPARISON: [place] [id number] 12/29/2020 11:59 AM FINDINGS: Lungs: Lungs are clear bilaterally. Pleural spaces: No pleural effusion. No pneumothorax. Heart/Mediastinum: The cardiac silhouette is mildly enlarged. This may be due at least in part to AP technique. Bones/joints: Unremarkable for age. XR/XR chest 1V portable [id number] IMPRESSION: 1. No acute cardiopulmonary process. 2. The cardiac silhouette is mildly enlarged. This may be due at least in part to AP technique.
[2021-01-01] MEDS: sodium chloride 0.9% 1,000 ML 999 ML IV (18:27)
[2021-01-01] MEDS: LORazepam 2 mg/mL INJ 1 mL IVP (18:27)
--- NOTE | 2021-01-01 18:35 | ED_ITS ---
Documented by User: Benjamin Stovall MD 01/02/21 11:06 HPI - General Adult General: Chief complaint: Overdose Stated complaint: ATAXIA Time Seen by Provider: 01/01/21 17:26 History of Present Illness: HPI narrative: CC: AMS HPI: [35]yo patient w/ hx of L sided hemiplegia from prior CVA, on wellbutrin for psych issues, prior hx of seizure BIBA for AMS after patient was found down by house mate after ingesting wellbutrin and not acting normal. Patient reported taking 6-8 tabs of 300mg XL Wellbutrin throughout the day. Patient also reported taking 1mg of klonopin at 5pm. No other coingestions Denies any suicidal or homoicidal ideation or active hallucination. Patient reports that she wanted take stimulants to get through her day but also realized I needed help for this addiction. No reported episodes of seizures after medicnie Onset: Unknown Duration: ongoing, x 1 day Location: home Severity: severe Review of Systems Narrative: Constitutional: No fever, no chills. HEENT: No vision changes CV: No chest pain, no palpitations PULM: no cough, no dyspnea. GI: No abdominal pain, no N/V/D. : No dysuria MSKEL: No muscle pain SKIN: No new rashes, no lesions. NEURO: No headache, no focal weakness. +gait instability HEME: No visible bruises PSYCH: Normal mood PFSH ED PFSH: Medical History History of incarceration Homeless MDD (major depressive disorder) Substance abuse Female Reproductive History: Date of last menstrual period: 12/13/20 Physical Exam Narrative: EXAM NARRATIVE: Head: Atraumatic Eyes: PERRL, conjunctiva without injection ENT: Mucous membrane moist NECK: Supple without lymphadenopathy LUNGS: LCTA bilaterally CV: RRR ABDOMEN: Soft, nontender in all quadrants EXTREMITY: Normal ROM SKIN: No rash or erythema, no signs of track barry, no visible patches, no noticeable cellulitis NEURO: AAOX3, GCS of 15, moving all extremities PSYCH: Cooperative or normal affect Course Vital Signs: Vital signs: Vital Signs Temperature 98.3 F 01/02/21 08:00 Pulse Rate 93 01/02/21 08:00 Respiratory Rate 35 H 01/02/21 08:00 Blood Pressure 140/90 01/02/21 08:00 Pulse Oximetry 96 01/02/21 08:00 MDM - General Adult MDM Narrative: Medical decision making narrative: [35]yo patient w/ hx of wellbutrin use BIBA for concern of medication overdose. GCS 15, AAOx3. Airway maintained. No signs of trauma including bruises, hematoma, lacerations, or basilar skull fracture. NO increased work of breathing or tachypnea on presentation, no suspicion for toxic alcohol vs ASA overdose vs DKA. DDx broad including intracranial injuries, metabolic phenomenon, substance intoxication/withdrawal, and sepsis. Toxidrome Findings: Negative. No rigidity or clonus of LE ankle/knee reflexes, no diaphoresis, pupils mid-ranged equal and reactive to light, no signs of track barry/body patches, normal bowel sounds, and bladder non-palpable/ non- distended. EKG showing regular sinus rhythm at HT of [91]. Normal axis. No ST elevat ions/depressions to suggest coronary occlusion. QRS of 141, QTc of 477 Workup: CBC, CMP, acetaminophen level, salicylate level, UA, ECG, UA/UDS Intervention: sodium bicarb drip given QRS widening Case was discussed with [place] poison specialist Mare with recommendation for admission for observation for seizure for 12 hrs. Patient given 1 dose of ativan in the ED. QRS of 141, will repeat EKG after starting on sodium bicarb drip. Disposition: Admission for seizure concerns Lab Data: Labs: Lab Results 01/01/21 01/01/21 01/01/21 18:25 18:25 18:25 WBC 8.6 10^3/uL 10^3/ uL (4.0-10.0) RBC 3.87 10^6/uL L 10 ^6/uL (4.1-5.3) Hgb 11.1 g/dL L g/dL (11.5-15.3) Hct 35.5 % L % (37.0-47.0) MCV 91.7 fl fl (81-99) MCH 28.7 pg pg (28.0-34.0) MCHC 31.3 g/dL g/dL (30.0-36.0) RDW 14.4 % % (12.1-15.1) Plt Count 271 10^3/cmm 10^3 /cmm (130-400) MPV 11.7 fL H fL (7.4-10.4) Neut % (Auto) 66.7 % % Lymph % (Auto) 23.8 % % Hendry % (Auto) 7.3 % % Eos % (Auto) 0.9 % % Baso % (Auto) 0.7 % % Neut # (Auto) 5.76 10^3/uL 10^3 /uL (1.8-7.7) Lymph # (Auto) 2.1 10^3/uL 10^3/ uL (0.8-4.8) Hendry # (Auto) 0.6 10^3/uL 10^3/ uL (0.2-0.9) Eos # (Auto) 0.1 10^3/uL 10^3/ uL (0.0-0.8) Baso # (Auto) 0.1 10^3/uL 10^3/ uL (0.0-0.1) Nucleated RBC % (a uto) 0 % % Nucleated RBCs # 0.0 /100WBC /100W BC Specimen Type Sample Site ABG pH ABG pCO2 ABG pO2 ABG HCO3 ABG Base Excess Adrián Test Hematocrit O2 Delivery Device [employer] Server ID Sodium 140 mmol/L mmol/L (136-145) Potassium 4.6 mmol/L mmol/L (3.5-5.1) Chloride 103 mmol/L mmol/L (98-107) Carbon Dioxide 24 mmol/L mmol/L (22-29) Anion Gap 17.6 (5-19) BUN 12 mg/dL mg/dL (6-20) Creatinine 0.6 mg/dL mg/dL (0.5-0.9) GFR Calculation 113.1 mL/min mL/m in (90-130) Glucose 86 mg/dL mg/dL (65-115) Calculated Osmolal ity 289 mOsm/kg mOsm/ kg (285-295) Calcium 9.5 mg/dL mg/dL (8.5-10.5) Total Bilirubin 0.2 mg/dL mg/dL (0.15-1.2) AST 16 U/L U/L (0-32) ALT 14 U/L U/L (0-33) Alkaline Phosphata se 70 IU/L IU/L (35-105) Troponin T Gen 5 n g/L 9 ng/L ng/L (0-10) Total Protein 7.0 g/dL g/dL (6.6-8.7) Albumin 4.3 g/dL g/dL (3.5-5.2) Globulin 2.7 g/dL g/dL (1.3-4.6) Lipase 14 U/L U/L (13-60) Urine Color Urine Appearance Urine pH Ur Specific Gravit y Urine Protein Urine Glucose (UA) Urine Ketones Urine Blood Urine Nitrate Urine Bilirubin Urine Urobilinogen Ur Leukocyte Ana ase Urine HCG, Qual Salicylates < 0.3 mg/dL L mg/ dL (3-10) Urine Opiates Scre en Acetaminophen < 5.0 ug/mL L ug/ mL (10-30) Ur Barbiturates Sc reen Ur Phencyclidine S crn Ur Amphetamines Sc reen U Benzodiazepines Scrn Urine Cocaine Scre en U Marijuana (THC) Screen SARS-CoV-2 Ag (Rap id) 01/01/21 01/01/21 01/01/21 18:35 19:15 19:15 WBC RBC Hgb Hct MCV MCH MCHC RDW Plt Count MPV Neut % (Auto) Lymph % (Auto) Hendry % (Auto) Eos % (Auto) Baso % (Auto) Neut # (Auto) Lymph # (Auto) Hendry # (Auto) Eos # (Auto) Baso # (Auto) Nucleated RBC % (a uto) Nucleated RBCs # Specimen Type Arterial Sample Site Radial, right ABG pH 7.43 (7.35-7.45) ABG pCO2 39.8 mmHg mmHg (35-45) ABG pO2 96.9 mmHg mmHg (80.0-100.0) ABG HCO3 26.1 mmol/L H mmo l/L (22-26) ABG Base Excess 1.6 mmol/L mmol/L (-2.0-2.0) Adrián Test Pos Hematocrit 35.9 % L % (37-47) O2 Delivery Device Room air [employer] Server ID Gd Sodium Potassium Chloride Carbon Dioxide Anion Gap BUN Creatinine GFR Calculation Glucose Calculated Osmolal ity Calcium Total Bilirubin AST ALT Alkaline Phosphata se Troponin T Gen 5 n g/L Total Protein Albumin Globulin Lipase Urine Color Yellow (Yellow) Urine Appearance Clear (CLEAR) Urine pH 7 (5-7) Ur Specific Gravit y 1.005 (1.005-1.030) Urine Protein Neg (Negative) Urine Glucose (UA) Norm (Normal) Urine Ketones Negative (Negative) Urine Blood Neg (Negative) Urine Nitrate Negative (Negative) Urine Bilirubin Neg (Negative) Urine Urobilinogen Norm mg/dL mg/dL (Negative) Ur Leukocyte Ana ase Negative (Negative) Urine HCG, Qual Negative (Negative) Salicylates Urine Opiates Scre en Acetaminophen Ur Barbiturates Sc reen Ur Phencyclidine S crn Ur Amphetamines Sc reen U Benzodiazepines Scrn Urine Cocaine Scre en U Marijuana (THC) Screen SARS-CoV-2 Ag (Rap id) 01/01/21 01/01/21 19:15 20:00 WBC RBC Hgb Hct MCV MCH MCHC RDW Plt Count MPV Neut % (Auto) Lymph % (Auto) Hendry % (Auto) Eos % (Auto) Baso % (Auto) Neut # (Auto) Lymph # (Auto) Hendry # (Auto) Eos # (Auto) Baso # (Auto) Nucleated RBC % (a uto) Nucleated RBCs # Specimen Type Sample Site ABG pH ABG pCO2 ABG pO2 ABG HCO3 ABG Base Excess Adrián Test Hematocrit O2 Delivery Device [employer] Server ID Sodium Potassium Chloride Carbon Dioxide Anion Gap BUN Creatinine GFR Calculation Glucose Calculated Osmolal ity Calcium Total Bilirubin AST ALT Alkaline Phosphata se Troponin T Gen 5 n g/L Total Protein Albumin Globulin Lipase Urine Color Urine Appearance Urine pH Ur Specific Gravit y Urine Protein Urine Glucose (UA) Urine Ketones Urine Blood Urine Nitrate Urine Bilirubin Urine Urobilinogen Ur Leukocyte Ana ase Urine HCG, Qual Salicylates Urine Opiates Scre en Negative ng/mL ng /mL (Negative) Acetaminophen Ur Barbiturates Sc reen Negative ng/mL ng /mL (Negative) Ur Phencyclidine S crn Negative ng/mL ng /mL (Negative) Ur Amphetamines Sc reen Negative ng/mL ng /mL (Negative) U Benzodiazepines Scrn Negative ng/mL ng /mL (Negative) Urine Cocaine Scre en Negative ng/mL ng /mL (Negative) U Marijuana (THC) Screen Negative ng/mL ng /mL (Negative) SARS-CoV-2 Ag (Rap id) Negative (Negative) EKG Data^: EKG 1: Computer generated interpretation: Chest X-Ray 01/01/21 18:23 IMPRESSION: 1. No acute cardiopulmonary process. 2. The cardiac silhouette is mildly enlarged. This may be due at least in part to AP technique. 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 [employer] Fwd Documented by User: Inocencia Scott MD 01/01/21 21:07 HPI - General Adult General: Chief complaint: Overdose Stated complaint: ATAXIA Time Seen by Provider: 01/01/21 17:26 [facility] ED PFSH: Medical History History of incarceration Homeless MDD (major depressive disorder) Substance abuse Course Vital Signs: Vital signs: Vital Signs Temperature 98.3 F 01/02/21 08:00 Pulse Rate 93 01/02/21 08:00 Respiratory Rate 35 H 01/02/21 08:00 Blood Pressure 140/90 01/02/21 08:00 Pulse Oximetry 96 01/02/21 08:00 MDM - General Adult MDM Narrative: Medical decision making narrative: Patient presents with an overdose on Wellbutrin. Initially his EKG had a little QRS widening patient was given bicarb with improvement of the QRS duration. She is been well-appearing here. I spoke to the hospitalist and will admit to the ICU. Lab Data: Labs: Lab Results 01/01/21 01/01/21 01/01/21 18:25 18:25 18:25 WBC 8.6 10^3/uL 10^3/ uL (4.0-10.0) RBC 3.87 10^6/uL L 10 ^6/uL (4.1-5.3) Hgb 11.1 g/dL L g/dL (11.5-15.3) Hct 35.5 % L % (37.0-47.0) MCV 91.7 fl fl (81-99) MCH 28.7 pg pg (28.0-34.0) MCHC 31.3 g/dL g/dL (30.0-36.0) RDW 14.4 % % (12.1-15.1) Plt Count 271 10^3/cmm 10^3 /cmm (130-400) MPV 11.7 fL H fL (7.4-10.4) Neut % (Auto) 66.7 % % Lymph % (Auto) 23.8 % % Hendry % (Auto) 7.3 % % Eos % (Auto) 0.9 % % Baso % (Auto) 0.7 % % Neut # (Auto) 5.76 10^3/uL 10^3 /uL (1.8-7.7) Lymph # (Auto) 2.1 10^3/uL 10^3/ uL (0.8-4.8) Hendry # (Auto) 0.6 10^3/uL 10^3/ uL (0.2-0.9) Eos # (Auto) 0.1 10^3/uL 10^3/ uL (0.0-0.8) Baso # (Auto) 0.1 10^3/uL 10^3/ uL (0.0-0.1) Nucleated RBC % (a uto) 0 % % Nucleated RBCs # 0.0 /100WBC /100W BC Specimen Type Sample Site ABG pH ABG pCO2 ABG pO2 ABG HCO3 ABG Base Excess Adrián Test Hematocrit O2 Delivery Device [employer] Server ID Sodium 140 mmol/L mmol/L (136-145) Potassium 4.6 mmol/L mmol/L (3.5-5.1) Chloride 103 mmol/L mmol/L (98-107) Carbon Dioxide 24 mmol/L mmol/L (22-29) Anion Gap 17.6 (5-19) BUN 12 mg/dL mg/dL (6-20) Creatinine 0.6 mg/dL mg/dL (0.5-0.9) GFR Calculation 113.1 mL/min mL/m in (90-130) Glucose 86 mg/dL mg/dL (65-115) Calculated Osmolal ity 289 mOsm/kg mOsm/ kg (285-295) Calcium 9.5 mg/dL mg/dL (8.5-10.5) Total Bilirubin 0.2 mg/dL mg/dL (0.15-1.2) AST 16 U/L U/L (0-32) ALT 14 U/L U/L (0-33) Alkaline Phosphata se 70 IU/L IU/L (35-105) Troponin T Gen 5 n g/L 9 ng/L ng/L (0-10) Total Protein 7.0 g/dL g/dL (6.6-8.7) Albumin 4.3 g/dL g/dL (3.5-5.2) Globulin 2.7 g/dL g/dL (1.3-4.6) Lipase 14 U/L U/L (13-60) Urine Color Urine Appearance Urine pH Ur Specific Gravit y Urine Protein Urine Glucose (UA) Urine Ketones Urine Blood Urine Nitrate Urine Bilirubin Urine Urobilinogen Ur Leukocyte Ana ase Urine HCG, Qual Salicylates < 0.3 mg/dL L mg/ dL (3-10) Urine Opiates Scre en Acetaminophen < 5.0 ug/mL L ug/ mL (10-30) Ur Barbiturates Sc reen Ur Phencyclidine S crn Ur Amphetamines Sc reen U Benzodiazepines Scrn Urine Cocaine Scre en U Marijuana (THC) Screen SARS-CoV-2 Ag (Rap id) 01/01/21 01/01/21 01/01/21 18:35 19:15 19:15 WBC RBC Hgb Hct MCV MCH MCHC RDW Plt Count MPV Neut % (Auto) Lymph % (Auto) Hendry % (Auto) Eos % (Auto) Baso % (Auto) Neut # (Auto) Lymph # (Auto) Hendry # (Auto) Eos # (Auto) Baso # (Auto) Nucleated RBC % (a uto) Nucleated RBCs # Specimen Type Arterial Sample Site Radial, right ABG pH 7.43 (7.35-7.45) ABG pCO2 39.8 mmHg mmHg (35-45) ABG pO2 96.9 mmHg mmHg (80.0-100.0) ABG HCO3 26.1 mmol/L H mmo l/L (22-26) ABG Base Excess 1.6 mmol/L mmol/L (-2.0-2.0) Adrián Test Pos Hematocrit 35.9 % L % (37-47) O2 Delivery Device Room air [employer] Server ID Gd Sodium Potassium Chloride Carbon Dioxide Anion Gap BUN Creatinine GFR Calculation Glucose Calculated Osmolal ity Calcium Total Bilirubin AST ALT Alkaline Phosphata se Troponin T Gen 5 n g/L Total Protein Albumin Globulin Lipase Urine Color Yellow (Yellow) Urine Appearance Clear (CLEAR) Urine pH 7 (5-7) Ur Specific Gravit y 1.005 (1.005-1.030) Urine Protein Neg (Negative) Urine Glucose (UA) Norm (Normal) Urine Ketones Negative (Negative) Urine Blood Neg (Negative) Urine Nitrate Negative (Negative) Urine Bilirubin Neg (Negative) Urine Urobilinogen Norm mg/dL mg/dL (Negative) Ur Leukocyte Ana ase Negative (Negative) Urine HCG, Qual Negative (Negative) Salicylates Urine Opiates Scre en Acetaminophen Ur Barbiturates Sc reen Ur Phencyclidine S crn Ur Amphetamines Sc reen U Benzodiazepines Scrn Urine Cocaine Scre en U Marijuana (THC) Screen SARS-CoV-2 Ag (Rap id) 01/01/21 01/01/21 19:15 20:00 WBC RBC Hgb Hct MCV MCH MCHC RDW Plt Count MPV Neut % (Auto) Lymph % (Auto) Hendry % (Auto) Eos % (Auto) Baso % (Auto) Neut # (Auto) Lymph # (Auto) Hendry # (Auto) Eos # (Auto) Baso # (Auto) Nucleated RBC % (a uto) Nucleated RBCs # Specimen Type Sample Site ABG pH ABG pCO2 ABG pO2 ABG HCO3 ABG Base Excess Adrián Test Hematocrit O2 Delivery Device [employer] Server ID Sodium Potassium Chloride Carbon Dioxide Anion Gap BUN Creatinine GFR Calculation Glucose Calculated Osmolal ity Calcium Total Bilirubin AST ALT Alkaline Phosphata se Troponin T Gen 5 n g/L Total Protein Albumin Globulin Lipase Urine Color Urine Appearance Urine pH Ur Specific Gravit y Urine Protein Urine Glucose (UA) Urine Ketones Urine Blood Urine Nitrate Urine Bilirubin Urine Urobilinogen Ur Leukocyte Ana ase Urine HCG, Qual Salicylates Urine Opiates Scre en Negative ng/mL ng /mL (Negative) Acetaminophen Ur Barbiturates Sc reen Negative ng/mL ng /mL (Negative) Ur Phencyclidine S crn Negative ng/mL ng /mL (Negative) Ur Amphetamines Sc reen Negative ng/mL ng /mL (Negative) U Benzodiazepines Scrn Negative ng/mL ng /mL (Negative) Urine Cocaine Scre en Negative ng/mL ng /mL (Negative) U Marijuana (THC) Screen Negative ng/mL ng /mL (Negative) SARS-CoV-2 Ag (Rap id) Negative (Negative) Imaging Data^: CXR: Attestation: I personally reviewed and interpreted this imaging study as follows: My impression: no acute abnormality EKG Data^: EKG 1: Attestation: I personally reviewed and interpreted this EKG as follows: EKG interpretation date: 01/01/21 EKG interpretation time: 19:49 Interpretation: nsr hr [address] or t wave abnormalities qrs 136 qtc 453 Computer generated interpretation: Chest X-Ray 01/01/21 18:23 IMPRESSION: 1. No acute cardiopulmonary process. 2. The cardiac silhouette is mildly enlarged. This may be due at least in part to AP technique. Critical Care Time Critical Care Time: Critical Care Time: Yes Total Critical Care Time: 35 Attestation: This case had a high probability of a clinically significant, sudden, or life threatening deterioration of this patient's condition which required my full and direct attention, intervention and personal management. 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
[2021-01-01 18:44] LABS: Basophils # 0.1 10^3/uL (0.0-0.1); Basophils % 0.7 %; Eosinophils # 0.1 10^3/uL (0.0-0.8); Eosinophils % 0.9 %; Hematocrit 35.5 % (37.0-47.0); Hemoglobin 11.1 g/dL (11.5-15.3); Lymphocytes # 2.1 10^3/uL (0.8-4.8); Lymphocytes % 23.8 %; Mean Corpuscular HGB Conc 31.3 g/dL (30.0-36.0); Mean Corpuscular Hemoglobin 28.7 pg (28.0-34.0); Mean Corpuscular Volume 91.7 fl (81-99); Mean Platelet Volume 11.7 fL (7.4-10.4); Monocytes # 0.6 10^3/uL (0.2-0.9); Monocytes % 7.3 %; Neutrophils # 5.76 10^3/uL (1.8-7.7); Neutrophils % 66.7 %; Nucleated Red Blood Cells % 0 %; Platelet Count 271 10^3/cmm (130-400); Red Blood Count 3.87 10^6/uL (4.1-5.3); Red Cell Distribution Width 14.4 % (12.1-15.1); White Blood Count 8.6 10^3/uL (4.0-10.0)
[2021-01-01 18:51] LABS: ABG PCO2 39.8 mmHg (35-45); ABG PH Result 7.43 (7.35-7.45); Arterial Blood Gas Hematocrit 35.9 % (37-47); Base Excess ABG 1.6 mmol/L (-2.0-2.0); Blood Gas Allen Test Pos; Blood Gas Operator Identificat GD; Blood Gas Sample Site Radial, right; Blood Gas Sample Type Arterial; HCO3 ABG 26.1 mmol/L (22-26); Oxygen Device ROOM AIR; PO2 ABG 96.9 mmHg (80.0-100.0)
[2021-01-01 19:10] LABS: Troponin T (5th) Once 9 ng/L (0-10)
[2021-01-01 19:12] LABS: Alanine Aminotransferase 14 U/L (0-33); Albumin Level 4.3 g/dL (3.5-5.2); Alkaline Phosphatase 70 IU/L (35-105); Anion Gap 17.6 (5-19); Aspartate Amino Transferase 16 U/L (0-32); Blood Urea Nitrogen 12 mg/dL (6-20); Calcium 9.5 mg/dL (8.5-10.5); Carbon Dioxide 24 mmol/L (22-29); Chloride 103 mmol/L (98-107); Globulin 2.7 g/dL (1.3-4.6); Glomerular Filtration Rate 113.1 mL/min (90-130); Glucose 86 mg/dL (65-115); Lipase 14 U/L (13-60); Osmolality Calculated 289 mOsm/kg (285-295); Potassium 4.6 mmol/L (3.5-5.1); Sodium 140 mmol/L (136-145); Total Bilirubin 0.2 mg/dL (0.15-1.2)
[2021-01-01 19:15] LABS: Acetaminophen < 5.0 ug/mL (10-30); Salicylate < 0.3 mg/dL (3-10)
[2021-01-01 19:40] LABS: Add Urine Microscopic? NO; Charge for UA Resulting for Rev
[2021-01-01 19:48] LABS: Bilirubin Urine Neg (Negative); Blood Urine Neg (Negative); Glucose Urine UA Norm (Normal); Ketones Urine Negative (Negative); Leukocyte Esterase Urine Negative (Negative); Nitrate Urine Negative (Negative); Protein Urine Neg (Negative); Specific Gravity, Urine 1.005 (1.005-1.030); Urine Appearance Clear (CLEAR); Urine Color Yellow (Yellow); Urobilinogen Urine Norm (Negative); pH Urine 7 (5-7)
[2021-01-01 19:55] LABS: Amphetamines Screen Urine Negative (Negative); Barbiturates Screen Urine Negative (Negative); Benzodiazepines Screen Urine Negative (Negative); Cocaine Screen Urine Negative (Negative); Opiate Screen Urine Negative (Negative); PCP Screen Urine Negative (Negative); THC Screen Urine Negative (Negative)
[2021-01-01 20:36] LABS: SARS Covid-2 Antigen Negative (Negative)
--- NOTE | 2021-01-01 22:57 | ECG_ITS ---
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 Measurements Intervals [place] Rate: 86 P: 46 PA: 196 QRS: 75 QRSD: 136 T: -11 QT: 410 QTc: 491 Interpretive Statements SINUS RHYTHM INTRAVENTRICULAR CONDUCTION DELAY [130+ ms QRS DURATION] PROBABLE INFERIOR MYOCARDIAL INFARCTION , OF INDETERMINATE AGE [35 ms Q WAVE IN II/aVF] Compared to ECG 01/01/2021 17:40:14 Intraventricular conduction delay now present Myocardial infarct finding now present Left bundle-branch block no longer present Electronically Signed On 01-02-2021 0:00:46 CDT by Richa Hernandez M.D. [id number]
--- NOTE | 2021-01-01 23:06 | P.HP_ITS ---
Providers/Chief Complaint Admitting Physician: Laura Palma MD Chief Complaint: ATAXIA History of Present Illness Kailee Huang is a 35 year old female with PMH L sided hemiplegia from prior CVA, ADHD, substance abuse, currently on wellbutrin, amitryptylline, SSRIs brought by roommate after ingesting excess doses of well-butrin. Patient reported taking 6-8 tabs of 300mg XL Wellbutrin throughout the day to get high . Patient also reported taking 1mg of klonopin at 5pm. Denies any suicidal or homicidal ideation. There are no current delusions, auditory or visual hallucinations. Incidentally noted LBBB on EKG of unknown chronicity, baseline trop normal, denies chest pain, refusing further lab draws. Case was discussed with [place] poison specialist Mare by ERP with recommendation for admission for observation for seizures over the next 12 hrs and EKG monitoring. Review of Systems General: Reports: 10 or more systems reviewed and unremarkable except in HPI and below Const: Denies: fever(s), chills or body aches Eyes: Denies: change in vision, blurry vision or photophobia ENMT: Reports: hoarseness; Denies: throat pain, enlarged tonsils, odynophagia or nasal congestion Card: Denies: chest pain, palpitations, irregular heart rhythm, edema, swelling of feet/ankles, lightheadedness, pre-syncope, dyspnea on exertion or orthopnea Resp: Denies: dyspnea, productive cough, non-productive cough, wheezing, strid or, pain on inspiration, change in phlegm color, hemoptysis or chest congestion GI: Denies: abdominal pain, nausea, vomiting, hematemesis, coffee ground emesis, dysphagia, heartburn, diarrhea, constipation, GI cramping, change in stool character, hematochezia or melena : Denies: flank pain, difficulty voiding, dysuria, urinary frequency, urinary urgency, urinary hesitancy or hematuria Musc: Denies: neck pain, back pain, extremity pain, joint swelling, joint warmth or deformity Neuro: Denies: headache(s), numbness in extremities, weakness in extremities, sensory changes, difficulty walking, frequent falls, dizziness, vertigo, behavioral changes, Slurred speech present or seizure-like activity Psych: Denies: anxiety, depression, suicidal ideation or homicidal ideation Endo: Denies: polyuria, polydipsia, tired all the time, cold intolerance or hot flashes Jorge/Lymph: Denies: easy bruising or easy bleeding Medications/Allergies Home Medications Medication Instructions Recorded Confirmed Last Taken Type clonazepam 2 mg tablet 1 mg PO BID tab 10/24/20 01/01/21 01/01/21 15:00 History amitriptyline 200 mg PO BEDTIME 11/21/20 01/01/21 12/31/20 History atomoxetine 100 mg capsule 100 mg PO QAM 30 Days #30 cap 12/31/20 01/01/21 Rx bupropion HCl 300 mg 24 hr tablet, 300 mg PO QAM #30 tab 12/31/20 01/01/21 01/01/21 Rx extended release 8 TABS dextroamphetamine-amphetamine 20 mg PO TID 01/01/21 01/01/21 Unknown History [Adderall] diclofenac sodium [Voltaren 4 g TOPICAL QID PRN 01/01/21 01/01/21 Unknown H istory Arthritis Pain] duloxetine 60 mg PO DAILY 01/01/21 01/01/21 Unknown History ibuprofen 1,000 mg PO BEDTIME 01/01/21 01/01/21 12/31/20 History melatonin 60 mg PO BEDTIME 01/01/21 01/01/21 12/31/20 History Allergies Allergy/AdvReac Type Severity Reaction Status Date / Time quetiapine [From Seroquel] Allergy seizures Verified 01/01/21 18:02 sulfamethoxazole Allergy anafalactic Verified 01/01/21 18:02 [From Bactrim] shock trimethoprim [From Bactrim] Allergy anafalactic Verified 01/01/21 18:02 shock PFSH Acute PFSH: Medical History History of incarceration Homeless MDD (major depressive disorder) Substance abuse Female Reproductive History: Date of last menstrual period: 12/13/20 Vitals/I&O/Wt Last Vital Signs Temp 99.0 F 01/01/21 22:40 Pulse 90 01/01/21 22:40 Resp 11 L 01/01/21 22:40 BP 178/89 01/01/21 22:40 Pulse Ox 100 01/01/21 22:40 01/01/21 01/01/21 01/02/21 14:59 22:59 06:59 Intake Total 1396.667 / 1396.667 Output Total 800 / 800 Balance 596.667 / 596.667 Weight last 48 hrs Weight 122.47 kg Physical Exam Narrative: EXAM NARRATIVE: General: No acute distress, AO x3 HEENT: PERRLA, pupils bilaterally equal and reactive, pallors not present Chest: Normal vesicular breath sounds, no added sounds, equal good air entry bilaterally CVS: S1-S2 regular, no murmurs, no tachycardia, no gallops, no rubs Abdomen: Soft, nontender, no organomegaly, bowel sounds present Neuro: No focal deficits, no facial deformity, AO x3, power 5/5 in all limbs Urinary Catheter Management^: [place]: Cath Placed During This Visit: yes Urinary Catheter Date of Insertion: 01/01/21 Urinary Catheter Time of Insertion: 21:00 Data : 01/01/21 18:25 01/01/21 18:25 A&P Assessment and plan (1) Acute drug overdose: Admit to ICU for close monitoring Presenting today with intentional overdose of Wellbutrin in an attempt to get high Denies any current suicidal or homicidal ideation. No hallucinations or delusions. Incidentally noted LBB on EKG, no prior EKG in system to compare at this time. Case discussed with poison control, recommend monitoring for any seizures over the next 12 hours. Also recommended bicarb drip for noted LBB. This was initially started in the ER, then discontinued once on repeat EKG QRS interval noted to be 133, on ABG bicarb at 26. Otherwise within normal limit. Patient refusing further lab draws for checking development of any interim metabolic alkalosis. Status: Acute (2) Substance abuse: Status: Acute Attestations Medical Necessity Statement*: Observation admission given drug overdose, monitor for signs of toxicity including seizures. Coding Level of Care Code Acute Net Software Architect for Daryl Trevino Diagnoses Acute drug overdose T50.901A Substance abuse F19.10
--- NOTE | 2021-01-01 23:38 | ECG_ITS ---
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 Measurements Intervals [place] Rate: 86 P: 55 [place]: 182 QRS: -27 QRSD: 133 T: 2 QT: 362 QTc: 435 Interpretive Statements SINUS RHYTHM INTRAVENTRICULAR CONDUCTION DELAY [130+ ms QRS DURATION] INTERPRETATION BASED ON A DEFAULT AGE OF 40 YEARS Compared to ECG 01/01/2021 19:49:42 Myocardial infarct finding no longer present Electronically Signed On 01-02-2021 0:03:27 CDT by Richa Hernandez M.D. [id number]
[2021-01-02] VITALS (54 sets, daily range): BP systolic 90–166; BP diastolic 55–138; PULSE 76–121; RESP 14–36; TEMP 36.8–37.2; O2SAT 89–100
[2021-01-02] MEDS: sodium chloride 0.9% 1,000 ML 75 ML IV ×2 (02:51→16:41)
--- NOTE | 2021-01-02 06:34 | NUR.SHIFT ---
Shift Note Frequent safety and comfort rounds continue. Orders and/or nursing care completed as indicated. Patient monitored for response to intervention and treatment. Education provided includes medications, EKG, condition, and repositioning. Patient and/or arborist representative verbalizes understanding. Will continue to monitor.
--- NOTE | 2021-01-02 07:42 | PC.NURSE ---
0700 Report received. Pt assessment completed. AAOx4. Makes all needs known. Denies any pain or SOB. Requests assistance with addiction, case management consulted. Bang caht draining freely. LR infusing per orders. Will monitor.
--- NOTE | 2021-01-02 08:25 | PC.NURSE ---
Pt states I don't feel comfortable leaving with this still in my system. I can still feel it in there . When asked what this is, pt stated that it is Wellbutrin.
--- NOTE | 2021-01-02 08:45 | ECG_ITS ---
[facility] Test Date: 2021-01-02 Pat Name: Kailee Huang Department: Room: [facility] Gender: Female Liability Claims Manager: : 1985 Requested By: Obed Faulkner Order Number: [id number] Shara MD: Richa Hernandez M.D. Measurements Intervals [place] Rate: 93 P: 81 MO: 179 QRS: -21 QRSD: 129 T: -10 QT: 366 QTc: 456 Interpretive Statements SINUS RHYTHM BORDERLINE LEFT AXIS DEVIATION [QRS AXIS < -20] MODERATE INTRAVENTRICULAR CONDUCTION DELAY [110+ ms QRS DURATION] Compared to ECG 01/01/2021 23:27:35 No significant changes Electronically Signed On 01-02-2021 20:39:46 CDT by Richa Hernandez M.D. [email or web address] Response.[facility].Energreen/store/OM/[id number]
[2021-01-02] MEDS: CLONazepam 1 mg Tablet PO ×2 (09:01→21:33)
--- NOTE | 2021-01-02 12:45 | ECG_ITS ---
[facility] Test Date: 2021-01-02 Pat Name: Kailee Huang Department: Room: [facility]09 Gender: Female Quality Control Associate: : 1985 Requested By: Obed Faulkner Order Number: [id number] Shara MD: Richa Hernandez M.D. Measurements Intervals [place] Rate: 90 P: 72 MD: 172 QRS: -7 QRSD: 131 T: -10 QT: 370 QTc: 455 Interpretive Statements SINUS RHYTHM INTRAVENTRICULAR CONDUCTION DELAY [130+ ms QRS DURATION] Compared to ECG 01/02/2021 09:44:42 No significant changes Electronically Signed On 01-02-2021 20:41:44 CDT by Richa Hernandez M.D. [email or web address] state east hospitalPurpose Global/store/OM/[id number]/[id number]
[2021-01-02] MEDS: acetaminophen 325 mg Tablet 650 MG PO (14:58)
--- NOTE | 2021-01-02 16:45 | ECG_ITS ---
[facility] Test Date: 2021-01-02 Pat Name: Kailee Huang Department: Room: [facility]09 Gender: Female Cafe Helper: FLAQUITO: 1985 Requested By: Obed Faulkner Order Number: [id number] Shara MD: Richa Hernandez M.D. Measurements Intervals [place] Rate: 83 P: 67 NC: 172 QRS: -13 QRSD: 125 T: -13 QT: 382 QTc: 450 Interpretive Statements SINUS RHYTHM MODERATE INTRAVENTRICULAR CONDUCTION DELAY [105+ ms QRS DURATION, 80+ ms Q/S IN V1/V2, NO Q AND 60+ ms R IN I/aVL/V5/V6] Compared to ECG 01/02/2021 13:12:11 No significant changes Electronically Signed On 01-02-2021 20:42:54 CDT by Richa Hernandez M.D. [email or web address].DOCUSYSRe [facility]cle[facility].Callystro/store/OM/[id number]/[id number]
--- NOTE | 2021-01-02 18:01 | P.PN_ITS ---
Subjective Subjective: Interval history: Patient was seen this morning, she tells me that she had a history of a stroke after she took Adderall opiates and other controlled substance together, she has left-sided hemiplegia, she tells me that she is currently homeless, and she was calling around to multiple landlord's to see if she could get a rental, she says that she needed more energy so that is why she took extra Wellbutrin with her clonazepam, denies any suicidal homicidal ideation, denies seeing or hearing things are not there, she tells me that she has a problems, she is addicted to her medications, and she would like to go to inpatient rehab, denies chest pain, no palpitations, Vitals/I&O/Wt Last Vital Signs Temp 98.8 F 01/02/21 16:00 Pulse 85 01/02/21 16:30 Resp 34 H 01/02/21 16:30 BP 156/78 01/02/21 16:30 Pulse Ox 99 01/02/21 16:30 01/02/21 01/02/21 01/02/21 06:59 14:59 22:59 Intake Total 0 / 1396.667 840 / 840 1480 / 2320 Output Total 1200 / 2000 1400 / 1400 Balance -1200 / -603.333 840 / 840 80 / 920 Weight last 48 hrs Weight 122.47 kg Physical Exam Const: COMMON NORMALS: no acute distress and patient oriented x3 Resp: COMMON NORMALS: normal respiratory effort, No retractions, No use of accessory muscles and clear to auscultation bilaterally AUSCULTATION: clear to auscultation bilaterally Cardio: COMMON NORMALS: regular rate, regular rhythm, S1 normal heart sound present and S2 normal heart sound present RATE: regular rate RHYTHM: regular rhythm HEART SOUNDS: S1 normal heart sound present and S2 normal heart sound present GI: COMMON NORMALS: Normal to inspection, nondistended, normoactive bowel sounds present, Soft to palpation, non-tender and No hepatosplenomegaly present PALPATION: Yes Soft to palpation and Yes No hepatosplenomegaly present Extremity: COMMON NORMALS: no pedal edema Neuro: COMMON NORMALS: patient oriented x3 OTHER: Left-sided hemiplegia, left upper extremity flexion contracture, left lower extremity strength 3 out of 5, chronic Psych: COMMON NORMALS: mental status grossly normal Urinary Catheter Management^: Cuecna: Cath Placed During This Visit: yes Reason for Continuing Indwelling Catheter: Acute Urinary Retention or Obstruction Urinary Catheter Date of Insertion: 01/01/21 Urinary Catheter Time of Insertion: 21:00 Data : 01/01/21 18:25 01/01/21 18:25 A&P Assessment and plan (1) Acute drug overdose: Can move to CSU Presenting today with intentional overdose of Wellbutrin in an attempt to get high Denies any current suicidal or homicidal ideation. No hallucinations or delusions. Incidentally noted LBB on EKG, no prior EKG in system to compare at this time. Case discussed with poison control, recommend monitoring for any seizures over the next 12 hours. Also recommended bicarb drip for noted LBB. This was initially started in the ER, then discontinued once on repeat EKG QRS interval noted to be 133, on ABG bicarb at 26. Otherwise within normal limit. Currently EKG shows sinus rhythm, persistent moderate intraventricular conduction delay, QRS 129 ms, QTC 456 ms, CA interval 179, I cannot see any LBB on this current EKG. When she came in she had evidence of LBBB, QRS 133 ms, QTC 435 ms Plan: -Repeat blood work in the evening CMP, mag -EKGs every 4 hours -Continue to monitor CA, QRS, QT interval -Can move to CSU -Patient is motivated by inpatient rehab, will discuss with Dr. Thomas Status: Acute (2) Substance abuse: Status: Acute Attestations Medical Necessity Statement*: Patient requires hospitalization for acute drug overdose, Wellbutrin overdose, with interventricular conduction delay, prolonged CA, QRS intervals, requiring ICU admission Coding Level of Care Code Acute Corporate Wellness Coordinator for [facility] Fwd Diagnoses Acute drug overdose T50.901A Substance abuse F19.10
--- NOTE | 2021-01-02 18:22 | PC.NURSE ---
Shift Note Frequent safety and comfort rounds continue. Orders and/or nursing care completed as indicated. Patient monitored for response to intervention and treatment(s). Education provided includes treatment plan and medications. Pt verbalizes understanding. No issues noted. Will continue to monitor.
[2021-01-02 20:24] LABS: Alanine Aminotransferase 11 U/L (0-33); Albumin Level 3.6 g/dL (3.5-5.2); Alkaline Phosphatase 60 IU/L (35-105); Blood Urea Nitrogen 11 mg/dL (6-20); Carbon Dioxide 24 mmol/L (22-29); Chloride 102 mmol/L (98-107); Globulin 3.2 g/dL (1.3-4.6); Glomerular Filtration Rate 113.1 mL/min (90-130); Glucose 93 mg/dL (65-115); Magnesium 1.8 mg/dL (1.7-2.3); Osmolality Calculated 283 mOsm/kg (285-295); Phosphorus 3.7 mg/dL (2.5-4.5); Sodium 137 mmol/L (136-145); Total Bilirubin 0.2 mg/dL (0.15-1.2); Total Protein 6.8 g/dL (6.6-8.7)
[2021-01-02 20:25] LABS: Anion Gap 15.7 (5-19); Aspartate Amino Transferase 16 U/L (0-32); Potassium 4.7 mmol/L (3.5-5.1)
--- NOTE | 2021-01-02 20:45 | ECG_ITS ---
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: : 1985 Requested By: Obed Faulnker Order Number: [id number] Reading MD: CASH BALLESTEROS Measurements Intervals [place] Rate: 75 P: 46 NC: 174 QRS: -24 QRSD: 124 T: -12 QT: 386 QTc: 434 Interpretive Statements SINUS RHYTHM POSSIBLE LEFT VENTRICULAR HYPERTROPHY [VOLTAGE CRITERIA PLUS LAE OR QRS WIDENING] POSSIBLE ANTERIOR MYOCARDIAL INFARCTION , OF INDETERMINATE AGE [30 ms Q WAVE IN V3/V4, OR R < 0.2 mV IN V4] Compared to ECG 01/02/2021 18:34:51 Myocardial infarct finding now present Intraventricular conduction delay no longer present Electronically Signed On 01-03-2021 15:43:08 CDT by CASH BALLESTEROS [email or web address].QBInternationalmerit health natchezSnipshotmercy health [facility].[employer]/store/OM/[id number]
[2021-01-03] VITALS (59 sets, daily range): BP systolic 103–176; BP diastolic 48–121; PULSE 71–94; RESP 14–41; TEMP 36.4–37.1; O2SAT 96–100
--- NOTE | 2021-01-03 00:45 | ECG_ITS ---
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: : 1985 Requested By: Obed Faulkner Order Number: [id number] Reading MD: CASH BALLESTEROS Measurements Intervals [place] Rate: 81 P: 76 [place]: 160 QRS: -21 QRSD: 125 T: -2 QT: 370 QTc: 430 Interpretive Statements SINUS RHYTHM POSSIBLE ANTERIOR MYOCARDIAL INFARCTION , OF INDETERMINATE AGE [30 ms Q WAVE IN V3/V4, OR R < 0.2 mV IN V4] INTERPRETATION BASED ON A DEFAULT AGE OF 40 YEARS Compared to ECG 01/02/2021 21:18:25 No significant changes Electronically Signed On 01-03-2021 15:43:00 CDT by CASH BALLESTEROS [email or web address].PostHelpersochsner rush healthRedfern Integrated Opticsday[facility].Solar Nation/store/NU/[id number]/ecg/[id number] f
[2021-01-03 04:06] LABS: Basophils # 0.1 10^3/uL (0.0-0.1); Basophils % 0.7 %; Eosinophils # 0.2 10^3/uL (0.0-0.8); Eosinophils % 2.3 %; Hematocrit 35.9 % (37.0-47.0); Hemoglobin 10.5 g/dL (11.5-15.3); Lymphocytes # 2.7 10^3/uL (0.8-4.8); Lymphocytes % 38.3 %; Mean Corpuscular HGB Conc 29.2 g/dL (30.0-36.0); Mean Corpuscular Hemoglobin 28.9 pg (28.0-34.0); Mean Corpuscular Volume 98.9 fl (81-99); Mean Platelet Volume 11.3 fL (7.4-10.4); Monocytes # 0.5 10^3/uL (0.2-0.9); Monocytes % 7.1 %; Neutrophils # 3.62 10^3/uL (1.8-7.7); Neutrophils % 51.2 %; Nucleated Red Blood Cells % 0 %; Platelet Count 253 10^3/cmm (130-400); Red Blood Count 3.63 10^6/uL (4.1-5.3); Red Cell Distribution Width 14.6 % (12.1-15.1); White Blood Count 7.1 10^3/uL (4.0-10.0)
[2021-01-03 04:20] LABS: Albumin Level 3.3 g/dL (3.5-5.2); Alkaline Phosphatase 58 IU/L (35-105); Blood Urea Nitrogen 13 mg/dL (6-20); Calcium 8.6 mg/dL (8.5-10.5); Carbon Dioxide 22 mmol/L (22-29); Chloride 104 mmol/L (98-107); Globulin 2.9 g/dL (1.3-4.6); Glomerular Filtration Rate 139.6 mL/min (90-130); Glucose 78 mg/dL (65-115); Magnesium 1.8 mg/dL (1.7-2.3); Osmolality Calculated 283 mOsm/kg (285-295); Phosphorus 3.9 mg/dL (2.5-4.5); Sodium 137 mmol/L (136-145); Total Bilirubin 0.2 mg/dL (0.15-1.2); Total Protein 6.2 g/dL (6.6-8.7)
[2021-01-03 04:22] LABS: Alanine Aminotransferase 11 U/L (0-33); Anion Gap 15.4 (5-19); Aspartate Amino Transferase 14 U/L (0-32); Potassium 4.4 mmol/L (3.5-5.1)
[2021-01-03 04:39] LABS: Slide Review Slide Review Perform
[2021-01-03] MEDS: sodium chloride 0.9% 1,000 ML 75 ML IV (05:45)
--- NOTE | 2021-01-03 06:00 | ECG_ITS ---
[facility] Test Date: 2021-01-03 Pat Name: Kailee Huang Department: Room: [facility]09 Gender: Female Underwriting Support Specialist: : 1985 Requested By: Obed Faulkner Order Number: [id number] Reading MD: CASH BALLESTEROS Measurements Intervals [place] Rate: 78 P: 51 DC: 167 QRS: -23 QRSD: 125 T: -13 QT: 378 QTc: 432 Interpretive Statements SINUS RHYTHM POSSIBLE ANTERIOR MYOCARDIAL INFARCTION , OF INDETERMINATE AGE [30 ms Q WAVE IN V3/V4, OR R < 0.2 mV IN V4] Compared to ECG 01/03/2021 01:27:42 No significant changes Electronically Signed On 01-03-2021 15:42:54 CDT by CASH BALLESTEROS [email or web address] & other things you bake.[facility].Blastbeat/store/OM/[id number]/ecg/[id number]
--- NOTE | 2021-01-03 09:32 | P.PN_ITS ---
Vitals/I&O/Wt Last Vital Signs Temp 98.7 F 01/03/21 08:00 Pulse 94 01/03/21 08:00 Resp 14 01/03/21 08:00 BP 144/84 01/03/21 08:00 Pulse Ox 99 01/03/21 08:00 01/02/21 01/03/21 01/03/21 22:59 06:59 14:59 Intake Total 2510 / 3350 980 / 4330 720 / 720 Output Total 1400 / 1400 750 / 2150 Balance 1110 / 1950 230 / 2180 720 / 720 Weight last 48 hrs Weight 122.47 kg Physical Exam Const: COMMON NORMALS: no acute distress and patient oriented x3 Resp: COMMON NORMALS: normal respiratory effort, No retractions, No use of accessory muscles and clear to auscultation bilaterally AUSCULTATION: clear to auscultation bilaterally Cardio: COMMON NORMALS: regular rate, regular rhythm, S1 normal heart sound present and S2 normal heart sound present RATE: regular rate RHYTHM: regular rhythm HEART SOUNDS: S1 normal heart sound present and S2 normal heart sound present GI: COMMON NORMALS: Normal to inspection, nondistended, normoactive bowel sounds present, Soft to palpation, non-tender and No hepatosplenomegaly present PALPATION: Yes Soft to palpation and Yes No hepatosplenomegaly present Extremity: COMMON NORMALS: no pedal edema Neuro: COMMON NORMALS: patient oriented x3 OTHER: Left-sided hemiplegia, left upper extremity flexion contracture, left lower extremity strength 3 out of 5, chronic Psych: COMMON NORMALS: mental status grossly normal Urinary Catheter Management^: [place]: Cath Placed During This Visit: yes Reason for Continuing Indwelling Catheter: Accurate Measurement of Urinary Output in Critically Ill Patients Urinary Catheter Date of Insertion: 01/01/21 Urinary Catheter Time of Insertion: 21:00 Data : 01/03/21 03:40 01/03/21 03:40 A&P Assessment and plan (1) Acute drug overdose: Can move to neuropsychiatric unit Presenting today with intentional overdose of Wellbutrin in an attempt to get high Denies any current suicidal or homicidal ideation. No hallucinations or delusions. Incidentally noted LBB on EKG, no prior EKG in system to compare at this time. Case discussed with poison control, recommend monitoring for any seizures over the next 12 hours. Also recommended bicarb drip for noted LBB. This was initially started in the ER, then discontinued once on repeat EKG QRS interval noted to be 133, on ABG bicarb at 26. Otherwise within normal limit. Currently EKG shows sinus rhythm, NE interval 160 ms, QRS duration 125 ms, QTC 430 ms, no chest pain complaints, I cannot see any LBBB on this current EKG. When she came in she had evidence of LBBB, QRS 133 ms, QTC 435 ms Plan: -We will move the neuropsychiatric unit -Patient is motivated by inpatient rehab, will discuss with Dr. Thomas -slowly reinstitute patient's home medications - Status: Acute (2) Substance abuse: Status: Acute Attestations Medical Necessity Statement*: We will continue to peripherally follow, EKGs daily Patient requires hospitalization for acute drug overdose, requires inpatient rehab Coding Level of Care Code Acute Drug Abuse Treatment Specialist for [facility] Diagnoses Acute drug overdose T50.901A Substance abuse F19.10
[2021-01-03] MEDS: CLONazepam 1 mg Tablet PO (11:18)
--- NOTE | 2021-01-03 13:27 | PC.NURSE ---
Pt receiving OT consult per Dr. Thomas to assess self care functioning for NPU. Awaiting transfer pending results of OT eval.
[2021-01-03] MEDS: diclofenac 1% Topical Gel 100 gm 1 APPLIC TOPICAL (14:29)
--- NOTE | 2021-01-03 15:17 | PC.CHAP ---
Pastoral Care Encounter/Spiritual Assessment Type of Contact [] Declined air liaison and special staff visit [] Patient/Family/Request visit [] Outpatient visit [] Follow-up visit [] Physician referral [] Code/Alert [] Routine visit [] Staff referral [] Actively dying [] Patient sleeping [] Family support [] [] Out of room [] Palliative care [] [] Receiving care in room [] Pre-surgical visit [] Trauma [] Long length of stay [xx] ICU visit [] Other: Relational/Emotional Strength [] Patient feels connected with others/family/visitors/staff [] Distress [] Loneliness/isolation [] Abandonment Spirituality of Patient [] Person of Shivani [] Attends Buddhism of their Shivani [] Believes in Prayer [] Reads Bible or Sikhism materials [] There are Spiritual issues to be addressed Metal Furniture Repairer Interventions [xx] Prayer [] Active listening [] Non-anxious presence [] Spiritual/emotional support [] Crisis/trauma care [] Spiritual counseling [] Bereavement support [] Provided bereavement packet [] Provided Bible/devotional materials [] Provided toy/stuffed animal, coloring book to patient or family member [] Provided Communion [] Anointing/Primrose [] Salvation [] Completed spiritual assessment [] Other: Impact on Illness or Injury [] Angry [] Fearful [] Anxious [] Often cries [] Exhaustion [] Unable to work [] Unable to attend latter-day [] Unable to walk/stand [] Unable to read [] Unable to drive [] Unable to eat/drink [] Unable to sleep [] Unable to be with family [] Patient intubated [] Other: Summary Metal Furniture Repairer prayed outside room as not permitted in room. Time spent with patient 2 minutes
--- NOTE | 2021-01-03 17:14 | PC.NURSE ---
Pt transferred to NPU. tolerated well. All belongings left at nurses station.
[2021-01-03] MEDS: amitriptyline 25 mg Tablet 50 MG PO (20:59)
[2021-01-03] MEDS: blistex lip oint 7 gm Tube 1 APPLIC TOPICAL (20:59)
[2021-01-03] MEDS: OLANZapine 5 mg ODT PO (21:23)
--- NOTE | 2021-01-03 21:26 | PC.NURSE ---
Pt med concerns States she overdosed on Wellbutrin and does not want to take it anymore. Pt would like cymbalta instead.
--- NOTE | 2021-01-03 22:22 | PC.NURSE ---
Red rashes observed during bath.Reddened areas to right upper thigh, right knee, and right posterior calf. Pt reports rash to thigh from catheter that was previously secured. Red areas to both buttocks. Scratch barry to left lower back. Pt stated I will scratch myself until I bleed . Redness to right ac and right wrist. Redness to left upper arm. Red round area to middle of chest. Pt reporting that is where my bracelet was too tight. I'll refuse labs if I have any in the morning or they better have silk tape. That one is from the heart patch . Cream placed as ordered. Bruising noted to bilat ac areas.
--- NOTE | 2021-01-03 22:59 | PC.NURSE ---
PRN's Zyprexa Zydis 5mg PO for racing thoughts Tylenol 650 for mild generalized pain Hydorcortisone Cream applied to her body during sponge bath, refused hair care, Blistex given for dry lips.
--- NOTE | 2021-01-03 23:02 | PC.NURSE ---
PM assessment Pt has rashes all over her body from tape and adhesive, states she is allergic to them and to latex, allergies updated. Medication applied during sponge bath. Pt is able to ambulate, she is a fall risk, Pt needed a bath, she opted for sponge bath, received this. Pt stated she is concerned about starting Welllbutrin in the the morning because she recently overdosed on this medication and just transferred to this unit from ICU. Pt would like to start Cymbalta instead, nurse will contact physician d/t concerns. Pt is in a wheelchair and her left arm is contracted. She is able to care for herself and ambulate. Pt is very attentive to the type of medications that she is taking, refused Trazodone states it caused restless leg and refused Visteril and says it is not effective, pt asked for Zyprexjaylin Zsanchez by name for her racing thoughts, medication provided. Pt refused hair care at this time. She laughs and jokes about her suicide attempt and downplays the emergency this caused. Pt states, I want to stay here until I go to [place], I know I need help.:
[2021-01-04 06:00] VITALS: BP 152/82; PULSE 86; RESP 18; TEMP 36.7; O2SAT 97
--- NOTE | 2021-01-04 06:00 | ECG_ITS ---
[facility] Test Date: 2021-01-04 Pat Name: Kailee Huang Department: Room: 128 Gender: Female Hr Clerk: : 1985 Requested By: Obed Faulkner Order Number: [id number] Shara MD: Jann Gunn M.D. Measurements Intervals [place] Rate: 77 P: 66 [place]: 163 QRS: -19 QRSD: 122 T: -10 QT: 367 QTc: 417 Interpretive Statements SINUS RHYTHM WITH SINUS ARRHYTHMIA MODERATE INTRAVENTRICULAR CONDUCTION DELAY [105+ ms QRS DURATION, 80+ ms Q/S IN V1/V2, NO Q AND 60+ ms R IN I/aVL/V5/V6] MODERATE VOLTAGE CRITERIA FOR LVH, CONSIDER NORMAL VARIANT [MEETS CRITERIA IN ONE OF: R(aVL), S(V1), R(V5), R(V5/V6)+S(V1)] Compared to ECG 01/03/2021 06:19:00 Intraventricular conduction delay now present Myocardial infarct finding no longer present Electronically Signed On 01-04-2021 21:14:22 CDT by Jann Gunn M.D. [email or web address].Tervela/store/[id number]
--- NOTE | 2021-01-04 09:39 | ECG_ITS ---
[facility] Test Date: 2021-01-04 Pat Name: Kailee Huang Department: Room: 128 Gender: Female Collections And Archives Director: : 1985 Requested By: Obed Faulkner Order Number: [id number] Shara MD: Jann Gunn M.D. Measurements Intervals [place] Rate: 94 P: 71 [place]: 166 QRS: -24 QRSD: 121 T: -4 QT: 312 QTc: 391 Interpretive Statements SINUS RHYTHM BORDERLINE LEFT AXIS DEVIATION [QRS AXIS < -20] MODERATE INTRAVENTRICULAR CONDUCTION DELAY [110+ ms QRS DURATION] MODERATE VOLTAGE CRITERIA FOR LVH, CONSIDER NORMAL VARIANT [MEETS CRITERIA IN ONE OF: R(aVL), S(V1), R(V5), R(V5/V6)+S(V1)] NONSPECIFIC T-WAVE ABNORMALITY INTERPRETATION BASED ON A DEFAULT AGE OF 40 YEARS Compared to ECG 01/04/2021 05:10:36 T-wave abnormality now present Sinus arrhythmia no longer present Electronically Signed On 01-04-2021 21:13:23 CDT by Jann Gunn M.D. [email or web address]/store/[id number]
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
[2021-01-04 14:00] VITALS: BP 137/84; PULSE 64; RESP 20; TEMP 36.7; O2SAT 97
[2021-01-04 20:56] VITALS: BP 100/54; PULSE 88; RESP 22; TEMP 36.7; O2SAT 97
[2021-01-04] MEDS: amitriptyline 25 mg Tablet 50 MG PO (21:48)
[2021-01-04] MEDS: OLANZapine 5 mg ODT PO (21:51)
--- NOTE | 2021-01-05 03:22 | PC.NURSE ---
PRN's Zyprexa Zydis 5mg PO for racing thoughts Hydorcortisone Cream applied to her body during sponge bath, refused hair care, follow up: Medication is effective, pt resting. Rash is clearing up with the hydrocortisone cream, skin less irritated
[2021-01-05 06:00] VITALS: BP 127/82; PULSE 84; RESP 200; TEMP 36.9; O2SAT 97
--- NOTE | 2021-01-05 06:00 | ECG_ITS ---
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 Measurements Intervals [place] Rate: 77 P: 37 LA: 160 QRS: -19 QRSD: 112 T: -18 QT: 388 QTc: 440 Interpretive Statements SINUS RHYTHM MODERATE INTRAVENTRICULAR CONDUCTION DELAY [110+ ms QRS DURATION] MODERATE VOLTAGE CRITERIA FOR LVH, CONSIDER NORMAL VARIANT [MEETS CRITERIA IN ONE OF: R(aVL), S(V1), R(V5), R(V5/V6)+S(V1)] Compared to ECG 01/04/2021 09:56:52 T-wave abnormality no longer present Electronically Signed On 01-05-2021 21:49:42 CDT by Jann Gunn M.D. [email or web address]/[id number]
[2021-01-05] MEDS: duloxetine 20 mg Capsule PO ×2 (08:14→21:45)
[2021-01-05] MEDS: buPROPion XL (24 HR) 150 mg Tablet PO (08:14)
--- NOTE | 2021-01-05 09:39 | ECG_ITS ---
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 Measurements Intervals [place] Rate: 85 P: 69 ID: [id number] QRS: -25 QRSD: 121 T: -15 QT: 345 QTc: 410 Interpretive Statements SINUS RHYTHM POSSIBLE LEFT ATRIAL ENLARGEMENT [-0.1mV P-WAVE IN V1/V2] BORDERLINE LEFT AXIS DEVIATION [QRS AXIS < -20] POSSIBLE LEFT VENTRICULAR HYPERTROPHY [VOLTAGE CRITERIA PLUS LAE OR QRS WIDENING] NONSPECIFIC T-WAVE ABNORMALITY Compared to ECG 01/05/2021 06:36:38 T-wave abnormality now present Intraventricular conduction delay no longer present Electronically Signed On 01-05-2021 21:49:29 CDT by Jann Gunn M.D. [id number]
--- NOTE | 2021-01-05 10:35 | PM.NPN ---
Subjective NPU Subjective: Interval history: Patient presents today reporting that she is a little frustrated because she wanted her amitriptyline to be at a higher dose because he struggling with sleep. We long discussion about the importance of using her back into the medications like the ICU doctor and recommended but that we would consider an increase tonight and her amitriptyline. Additionally she is accustomed to having Cymbalta at 60 mg when she was on it in the past and again we discussed the process by which we bring medications into therapeutic zones. Otherwise she was continuing to be optimistic about work with the treatment team tomorrow for drug and alcohol treatment once she is stable psychiatrically. Mental Status Exam MSE Comments: This is an obese versus morbidly obese white female with hospital scrubs on with limited grooming and eye contact. No abnormal movements except for mild psychomotor retardation. Cooperative with exam in mild distress. Speech was decreased rate and volume . Mood described as frustrated, affect irritable. Thought process organized, thought content: Patient denied suicidal or homicidal ideation currently there were no delusions reported or noted, he denies any auditory or visual elucidation. Attention and concentration were intact and memory was unreliable but none were formally tested. She is alert and oriented x3. Insight and judgment are limited and well-controlled limited. Vitals/I&O/Wt Last Vital Signs Temp 98.1 F 01/04/21 20:56 Pulse 88 01/04/21 20:56 Resp 22 H 01/04/21 20:56 BP 100/54 01/04/21 20:56 Pulse Ox 97 01/04/21 20:56 Physical Exam Urinary Catheter Management^: Cuenca: Cath Placed During This Visit: yes, but has since been removed by the nurse Reason for Continuing Indwelling Catheter: Decision to DC Catheter Urinary Catheter Date of Insertion: 01/01/21 Urinary Catheter Time of Insertion: 21:00 Date Urinary Catheter Removed: 01/03/21 Time Urinary Catheter Discontinued: 16:56 Data NPU : 01/03/21 03:40 01/03/21 03:40 A&P Additional A&P Information (1) Contusion of head: (2) Contusion of left shoulder: (3) Acute drug overdose: (4) Homeless: (5) History of incarceration: (6) Substance abuse: (7) MDD (major depressive disorder): (8) Posttraumatic stress disorder: This is a 35-year-old white female with a long history of addiction and psychiatric challenges who presents after an intentional overdose for which she denies suicidal intent but endorses depression and needing to get placed in a different medication and being open to ongoing alcohol and other drug treatment once he is stabilized. 1. Continue current medication. We will consider increasing amitriptyline tonight. 2. Continue every 15 minute checks for safety. 3. Encourage individual, group and milieu therapies. 4. Encourage sober living treatment after discharge at the highest level of care to which he is willing to commit. Involuntary Hold Information 96 Hour Hold: 96 Hour Involuntary Admission: No Attestations NPU Medical Necessity Statement*: Inpatient hospitalization is medically necessary and the clinically appropriate intervention at this time. We will monitor medications and make changes as indicated. Likely length of stay 2-4 days. Coding Level of Care Code Acute Demolition Specialist for Daryl Trevino
[2021-01-05 14:00] VITALS: BP 110/70; PULSE 81; RESP 17; TEMP 36.9; O2SAT 97
[2021-01-05 20:08] VITALS: BP 128/63; PULSE 93; RESP 23; TEMP 37; O2SAT 98
[2021-01-05] MEDS: amitriptyline 25 mg Tablet 50 MG PO (21:44)
[2021-01-05] MEDS: CLONazepam 1 mg Tablet PO (21:45)
--- NOTE | 2021-01-05 21:45 | PC.NURSE ---
pt noted with increased anxiety due to home meds not being ordered like they are supposed to be . clonazepam 1mg po given.
[2021-01-05] MEDS: OLANZapine 5 mg ODT PO (21:47)
--- NOTE | 2021-01-05 21:50 | PC.NURSE ---
pt requested something for sleep. pt stated she cannot take trazodone due to it giving her leg cramps. zyprexa zydis 5mg SL given.
[2021-01-05] MEDS: amitriptyline 25 mg Tablet 100 MG PO (23:12)
--- NOTE | 2021-01-06 | PC.NURSE ---
pt resting quietly at this time.
[2021-01-06 06:00] VITALS: BP 131/88; PULSE 70; RESP 19; TEMP 36.8; O2SAT 94
--- NOTE | 2021-01-06 09:39 | ECG_ITS ---
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 Measurements Intervals [place] Rate: 78 P: 49 MO: 148 QRS: -19 QRSD: 115 T: -15 QT: 371 QTc: 425 Interpretive Statements SINUS RHYTHM POSSIBLE LEFT VENTRICULAR HYPERTROPHY [VOLTAGE CRITERIA PLUS LAE OR QRS WIDENING] Compared to ECG 01/05/2021 09:32:47 T-wave abnormality no longer present Electronically Signed On 01-06-2021 22:22:24 CDT by Jann Gunn M.D. [email or web address].[email or web address][id number]
[2021-01-06] MEDS: buPROPion XL (24 HR) 150 mg Tablet PO (10:51)
[2021-01-06] MEDS: duloxetine 20 mg Capsule PO ×2 (10:51→21:33)
[2021-01-06 14:00] VITALS: BP 102/56; PULSE 85; RESP 18; TEMP 37.3; O2SAT 100
--- NOTE | 2021-01-06 14:48 | P.PN_ITS ---
Subjective NPU Subjective: Interval history: The patient says she is doing better today. She got sleep last night. She says it is easier for her to handle her emotions if she sleeps at night. She said her mood is feeling better, and she has not is depressed. We discussed how scary it was for her to go to the intensive care unit. She denies suicidal and homicidal ideation. She denies auditory and visual hallucinations. She is having no side effects from the overdose. We began to talk about how she ended up taking too many of her Wellbutrin. She says she took them to get energy. Mental Status Exam MSE Comments: This is an obese versus morbidly obese white female with hospital scrubs on with limited grooming and eye contact. No abnormal movements or tics noted. Cooperative with exam. Speech was at a regular rate and volume . Mood described as improved, affect pleasant to irritable. Thought process organized, thought content: Patient denied suicidal or homicidal ideation currcristian resendiz there were no delusions reported or noted. She denies any auditory or visual hallucinations. Attention and concentration were intact and memory was unreliable but none were formally tested. She is alert and oriented x3. Insight and judgment are limited and impulse control was limited. Vitals/I&O/Wt Last Vital Signs Temp 98.7 F 01/06/21 22:00 Pulse 105 H 01/06/21 22:00 Resp 17 01/06/21 22:00 BP 127/80 01/06/21 22:00 Pulse Ox 98 01/06/21 22:00 Physical Exam Urinary Catheter Management^: Cuenca: Cath Placed During This Visit: yes, but has since been removed by the nurse Reason for Continuing Indwelling Catheter: Decision to DC Catheter Urinary Catheter Date of Insertion: 01/01/21 Urinary Catheter Time of Insertion: 21:00 Date Urinary Catheter Removed: 01/03/21 Time Urinary Catheter Discontinued: 16:56 Data NPU : 01/03/21 03:40 01/03/21 03:40 A&P Assessment and plan (1) MDD (major depressive disorder): Status: Acute (2) Acute drug overdose: Status: Acute (3) Posttraumatic stress disorder: Status: Acute (4) Homeless: Status: Acute (5) History of incarceration: Status: Acute (6) Substance abuse: Status: Acute Additional A&P Information This is a 35-year-old white female with a long history of addiction and psychiatric challenges who presents after an intentional overdose for which she denies suicidal intent but endorses depression and needing to get placed in a different medication and being open to ongoing alcohol and other drug treatment once she is stabilized. 1. Continue current medication. We will add back amitriptyline at 50 mg. 2. Continue every 15 minute checks for safety. 3. Encourage individual, group and milieu therapies. 4. Encourage sober living treatment after discharge at the highest level of care to which she is willing to commit. Involuntary Hold Information 96 Hour Hold: 96 Hour Involuntary Admission: No Attestations NPU Medical Necessity Statement*: Inpatient hospitalization is medically necessary and the clinically appropriate intervention at this time. We will monitor medications and make changes as indicated. Likely length of stay 2-4 days. Coding Level of Care Code Acute Brand Inspector for Daryl Trevino Diagnoses MDD (major depressive disorder) F32.9 Acute drug overdose T50.901A Posttraumatic stress disorder F43.10 Homeless Z59.0 History of incarceration Z78.9 Substance abuse F19.10
[2021-01-06] MEDS: OLANZapine 5 mg ODT PO (21:34)
[2021-01-06] MEDS: CLONazepam 1 mg Tablet PO (21:35)
--- NOTE | 2021-01-06 21:35 | PC.NURSE ---
pt requested i want my amitriptyline when pt was told she did not have it ordered anymore, pt stated WHAT....I HAVE TO HAVE IT, IT TAKES 200MG FOR ME TO GET TO SLEEP. IF I DON'T GET MY MEDICINE I'M SUPPOSED TO HAVE, I'M GOING TO START THROWING MY WHEELCHAIR! I WANT TO BE TRANSFERED, WHEN CAN I LEAVE? Pt was advised that she needed to discuss with the Doctor about her medications and her concerns recarding her meds. Dr Naranjo notified of pt' concerns, order received for Amitriptyline 50mg po qhs.
[2021-01-06 22:00] VITALS: BP 127/80; PULSE 105; RESP 17; TEMP 37.1; O2SAT 98
[2021-01-06] MEDS: hyDROXYzine 25 mg Capsule 50 MG PO (22:15)
[2021-01-06] MEDS: amitriptyline 25 mg Tablet 50 MG PO (22:15)
--- NOTE | 2021-01-06 22:15 | PC.NURSE ---
pt given amitriptyline 50mg po as well as vistaril 50mg po for anxiety.
[2021-01-06] MEDS: haloperidol 5 mg Tablet PO (23:09)
--- NOTE | 2021-01-06 23:10 | PC.NURSE ---
pt came to the nurses desk stating... give me my haldol. that's the only way i'm going to get any sleep tonight. Haldol 5mg po given.
--- NOTE | 2021-01-07 | PC.NURSE ---
pt resting quietly with both eyes closed at this time.
[2021-01-07 06:00] VITALS: RESP 15
--- NOTE | 2021-01-07 06:50 | PC.NURSE ---
pt refused vitals/respirations observed
[2021-01-07] MEDS: buPROPion XL (24 HR) 150 mg Tablet PO (08:13)
[2021-01-07] MEDS: duloxetine 20 mg Capsule PO ×2 (08:13→20:41)
--- NOTE | 2021-01-07 09:39 | ECG_ITS ---
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1985 Requested By: Obed Faulkner Order Number: [id number] Reading MD: CASH BALLESTEROS Measurements Intervals [place] Rate: 77 P: 54 UT: 144 QRS: -18 QRSD: 116 T: -12 QT: 375 QTc: 424 Interpretive Statements SINUS RHYTHM MODERATE INTRAVENTRICULAR CONDUCTION DELAY [110+ ms QRS DURATION] VOLTAGE CRITERIA FOR LVH [MEETS CRITERIA IN ONE OF: R(aVL), S(V1), R(V5), R(V5/V6)+S(V1)] Compared to ECG 01/06/2021 10:48:31 Intraventricular conduction delay now present Electronically Signed On 01-07-2021 20:03:41 CDT by CASH BALLESTEROS [id number]
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
[2021-01-07 14:00] VITALS: BP 117/66; PULSE 91; RESP 18; TEMP 36.8; O2SAT 94
[2021-01-07] MEDS: OLANZapine 5 mg ODT PO (20:41)
[2021-01-07] MEDS: amitriptyline 25 mg Tablet 50 MG PO (20:41)
[2021-01-07] MEDS: CLONazepam 1 mg Tablet PO (20:41)
[2021-01-07] MEDS: blistex lip oint 7 gm Tube 1 APPLIC TOPICAL (20:42)
--- NOTE | 2021-01-07 20:49 | PC.NURSE ---
Vistaril 50mg PO given for anxiety. Trazdone 50 mg PO given for sleep Nicotine Gum given to pt
--- NOTE | 2021-01-07 20:49 | PC.NURSE ---
Addendum entered by Carmen England RN 01/08/21 05:47: Pt is anxious and her agitation is lessened but not relieved Original Note: PRN's Klonipin 1mg PO given for anxiety Blistex provide for cracked and dry lips Zyprexa Zydis 5mg Sublingual provided for intrusive thought, increased agitation.
[2021-01-07] MEDS: hyDROXYzine 25 mg Capsule 50 MG PO (21:43)
[2021-01-07] MEDS: haloperidol 5 mg Tablet PO (21:43)
--- NOTE | 2021-01-07 21:45 | PC.NURSE ---
Vistaril 50mg PO given for anxiety. hALDOL 5MG pO FOR DELUSIONAL THOUGHTS AND INTRUSIVE THOUGHT
[2021-01-07 22:00] VITALS: BP 124/74; PULSE 96; RESP 20; TEMP 37.4; O2SAT 97
[2021-01-08 06:00] VITALS: BP 89/54; PULSE 74; RESP 20; TEMP 36.7; O2SAT 96
[2021-01-08] MEDS: buPROPion XL (24 HR) 150 mg Tablet PO (09:13)
[2021-01-08] MEDS: duloxetine 20 mg Capsule PO (09:13)
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
[2021-01-08 13:50] VITALS: BP 89/54; PULSE 74; RESP 20; TEMP 36.7; O2SAT 96
[2021-01-08 14:00] VITALS: BP 89/54; PULSE 74; RESP 20; TEMP 36.7; O2SAT 96
== END 2021-01-08 17:01 | disposition home or self-care (01) | DRG 918 ==
LOC: ER 20:52 → ICU 21:14 → NP 01-03 16:59
PROVIDERS: Emergency Medicine; Family Medicine; Admitting Provider Student in an Organized Health Care Education/Training Program; Emergency Provider Emergency Medicine; Visit Provider Psychiatry & Neurology Child & Adolescent Psychiatry
DX: T43.292A Poisoning by other antidepressants, intentional self-harm, initial encounter (principal); I69.954 Hemiplegia and hemiparesis following unspecified cerebrovascular disease affecting left non-dominant side; Z59.0 Homelessness; F32.9 Major depressive disorder, single episode, unspecified; F90.9 Attention-deficit hyperactivity disorder, unspecified type; I44.7 Left bundle-branch block, unspecified; S00.93XA Contusion of unspecified part of head, initial encounter; X58.XXXA Exposure to other specified factors, initial encounter; S40.022A Contusion of left upper arm, initial encounter; F43.12 Post-traumatic stress disorder, chronic
CPT/HCPCS: 36415; 36600; 51702; 71045; 80053; 80306; 80307; 81003; 81025; 82803; 83690; 83735; 84100; 84484; 85025; 87426; 93005; 96365; 96375; 97110; 97150; 97165; 97166; 97535; 99285; G0378; J2060; J7030

== ENCOUNTER 2021-02-08 06:30 | Emergency (ER) | payer MEDICARE, MEDICAID, SELFPAY ==
[2021-02-08] VITALS (7 sets, daily range): BP systolic 132–213; BP diastolic 70–106; PULSE 73–117; RESP 16–20; TEMP 36.4; O2SAT 97–100; BMI 43.8
--- NOTE | 2021-02-08 06:35 | ECG_ITS ---
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 Measurements Intervals [place] Rate: 105 P: 53 SC: 168 QRS: -23 QRSD: 125 T: 22 QT: 357 QTc: 474 Interpretive Statements SINUS TACHYCARDIA POSSIBLE LEFT VENTRICULAR HYPERTROPHY [VOLTAGE CRITERIA PLUS LAE OR QRS WIDENING] NONSPECIFIC T-WAVE ABNORMALITY Compared to ECG 01/07/2021 11:09:23 T-wave abnormality now present Sinus rhythm no longer present Intraventricular conduction delay no longer present Electronically Signed On 02-08-2021 8:54:46 CDT by Shobha Simental M.D. [id number]
[2021-02-08 06:39] LABS: Glucose Point of Care 121 mg/dL (70-110)
--- NOTE | 2021-02-08 06:39 | ED_ITS ---
HPI - General Adult General: Chief complaint: General Medical Stated complaint: posible seziure Time Seen by Provider: 02/08/21 06:35 History of Present Illness: HPI narrative: HPI: [35]yo patient w/ hx of epilespy previously on keppra off for 1 month, hx of chronic alcohol use BIBA to the ED with concern for I am beginning to have symptoms of seizures. Patient reports that this feels like when she is about to go into a seizure episode and decided to call the EMS. En route, the patient had a fingerstick glucose of 123 and was back to baseline. HDS without any signs of focal neurological deficits. On arrival, the patient is AAOx3, GCS of 15 and answering all questions. The patient denies any associated chest pain, shortness of breath, palpitations, or any focal pain in the arms and legs. Last time breakthrough seizure occurred 2 weeks ago and patient thinks the current episode is due to her not taking her keppra medicine as she is currently homeless and yet to establish care with a PCP. Onset: prodrome of 2 hrs Duration: ongoing Location: home Severity: moderate Review of Systems Narrative: Constitutional: No fever, no chills. +feeling unwell HEENT: No vision changes CV: No chest pain, no palpitations PULM: No productive cough, no dyspnea. GI: No abdominal pain, no N/V/D. : No Dysuria MSKEL: No muscle pain SKIN: No new rashes, no lesions. NEURO: No headache, no focal weakness. +diffuse shaking HEME: No visible bruises PSYCH: Normal mood [facility] ED PFSH: Medical History (Updated 02/08/21 @ 06:47 by Benjamin Stovall MD) History of incarceration Homeless MDD (major depressive disorder) Psychiatric care Substance abuse Female Reproductive History: Date of last menstrual period: 12/13/20 Physical Exam Narrative: EXAM NARRATIVE: Head: Atraumatic Eyes: PERRL, conjunctiva without injection, eyes tracking ENT: Mucous membrane moist NECK: Supple without lymphadenopathy LUNGS: LCTAB CV: RRR ABDOMEN: Soft, nontender in all quadrants, no guarding or rebound tenderness, no CVA or flank tenderness bilaterally EXTREMITY: Normal ROM, +resting tremulousness in arms b/l SKIN: No rash or erythema NEURO: CN II-XII tested and intact. Sensation intact to sharp/dull differentiation in all extremities. Motor: Normal tone and bulk. No abnormal movements appreciated. No pronator drift. Strength tested and 5/5 in bilateral wrist flexion/extension, elbow flexion/extension, shoulder abduction, straight leg raise, knee flexion/extension, ankle dorsiflexion/plantarflexion. Patient ambulates with a steady gait. Coordination: Finger to nose and heel to nunez testing intact bilaterally. Reflexes intact in the ankles, knees, and elbows bilaterally PSYCH: Cooperative mood and affect Course Vital Signs: Vital signs: Vital Signs Temperature 97.6 F 02/08/21 06:31 Pulse Rate 80 02/08/21 13:23 Respiratory Rate 16 02/08/21 12:11 Blood Pressure 136/82 02/08/21 10:33 Pulse Oximetry 98 02/08/21 13:23 MDM - General Adult MDM Narrative: Medical decision making narrative: [35]yo patient w/ known hx of seizure on keppra BIBA after feeling unwell at home and is concerned that she is about to have a seizure. On arrival, AAOX3 with non-focal neuro exam. HDS. Exam revealed no focal trauma/deformity/bruises.The episode of seizure was witnessed and without any trauma/injury to the head. No immunosuppression hx and without preceding fever. No history of alcohol abuse or suspicion for toxin ingestion. Hx of prior seizure likely breakthrough seizure in the setting of medication change/non-compliance. H No lips/tongue lacerations. No visible bowel/bladder incontinence Airway protected. No drooling. Sats > 95%. Unlikely to be stroke, neurogenic syncope, acute delirium, intracranial tumor/mass, intracranial bleed, SAH/subdural hematoma/epidural hematoma, meningitis, or intracranial abscess, or from alcohol withdrawal. EMS Interventions: None POC glucose: 123 Workup: CBC, BMP, Magnesium, EKG ED Interventions: 1g of keppra, PO challenge, IVF, ativan 2mg, serial reassessment EKG: No e/o STEMI. No evidence of Brugada?s sign, delta wave, epsilon wave, significantly prolonged QTc, or malignant arrhythmia. Lab findings: Electrolytes including K and Mg wnl. [7:34am] On reassessment, patient back to baseline. In the ED, the patient received 1g of keppra in the ED. No other witnessed episodes of seizure while the patient was observed in the ED. Repeat neuro exam is non-focal. Patient takes keppra 750mg for her seizures and tells me the seizure is likely secondary to medication non-compliance. Patient tolerated PO in the ED and was able to ambulate without difficulties. Unlikely to be alternative causes of seizures since the patient has no hx of immunosuppression, no recent fevers, no recent abx/[employer] shunt, no recent toxic exposure, no unilateral or focal weakness, or trauma. I have given patient follow up with our mental health case manager to be seen by our outpatient Neurologist Dr. Delgado and Dr. Ruvalcaba for management of seizures as patient is currently homeless and yet to establish car with a PCP and a neurologist. Patient aware of a call from our mental health case manager to schedule for appointment(s) and verbalizes understanding of the importance of following up. Rx: keppra 750mg BID x 30 days Disposition: Discharge. Patient is given instruction for follow-up with PCP and Neurology in the next 24-48 hours. Given seizure precautions including no driving, swimming, or bathing until the patient is fully evaluated by specialists. Lab Data: Labs: Lab Results 02/08/21 02/08/21 02/08/21 06:36 07:00 07:00 WBC 5.6 10^3/uL 10^3/ uL (4.0-10.0) RBC 4.21 10^6/uL 10^6 /uL (4.1-5.3) Hgb 11.9 g/dL g/dL (11.5-15.3) Hct 39.0 % % (37.0-47.0) MCV 92.6 fl fl (81-99) MCH 28.3 pg pg (28.0-34.0) MCHC 30.5 g/dL g/dL (30.0-36.0) RDW 14.5 % % (12.1-15.1) Plt Count 332 10^3/cmm 10^3 /cmm (130-400) MPV 11.1 fL H fL (7.4-10.4) Neut % (Auto) 60.7 % % Lymph % (Auto) 27.7 % % [place] % (Auto) 8.1 % % Eos % (Auto) 1.8 % % Baso % (Auto) 1.3 % % Neut # (Auto) 3.38 10^3/uL 10^3 /uL (1.8-7.7) Lymph # (Auto) 1.5 10^3/uL 10^3/ uL (0.8-4.8) [place] # (Auto) 0.5 10^3/uL 10^3/ uL (0.2-0.9) Eos # (Auto) 0.1 10^3/uL 10^3/ uL (0.0-0.8) Baso # (Auto) 0.1 10^3/uL 10^3/ uL (0.0-0.1) Nucleated RBC % (a uto) 0 % % Nucleated RBCs # 0.0 /100WBC /100W BC Sodium 143 mmol/L mmol/L (136-145) Potassium 4.3 mmol/L mmol/L (3.5-5.1) Chloride 107 mmol/L mmol/L (98-107) Carbon Dioxide 29 mmol/L mmol/L (22-29) Anion Gap 11.3 (5-19) BUN 8 mg/dL mg/dL (6-20) Creatinine 0.6 mg/dL mg/dL (0.5-0.9) GFR Calculation 113.1 mL/min mL/m in (90-130) Glucose 105 mg/dL mg/dL (65-115) POC Glucose 121 mg/dL H mg/dL (70-110) Calculated Osmolal ity 295 mOsm/kg mOsm/ kg (285-295) Calcium 8.6 mg/dL mg/dL (8.5-10.5) Magnesium 1.8 mg/dL mg/dL (1.7-2.3) Ser , Gustavo i-Qnt 02/08/21 07:00 WBC RBC Hgb Hct MCV MCH MCHC RDW Plt Count MPV Neut % (Auto) Lymph % (Auto) [place] % (Auto) Eos % (Auto) Baso % (Auto) Neut # (Auto) Lymph # (Auto) [place] # (Auto) Eos # (Auto) Baso # (Auto) Nucleated RBC % (a uto) Nucleated RBCs # Sodium Potassium Chloride Carbon Dioxide Anion Gap BUN Creatinine GFR Calculation Glucose POC Glucose Calculated Osmolal ity Calcium Magnesium Ser , Gustavo i-Qnt 0.50 mIU/mL mIU/m L Discharge Plan Discharge Patient Disposition: Home Clinical Impression: Seizure, Alcohol withdrawal Condition: Stable Prescriptions: New Keppra 750 mg tablet 750 mg PO BID 30 Days Qty: 60 RF: 0 No Action Klonopin 2 mg tablet 1 mg PO BID 30 Days Qty: 30 RF: 0 Cymbalta 30 mg capsule,delayed release(DR/EC) 30 mg PO BID Qty: 60 RF: 0 amitriptyline 100 mg tablet 100 mg PO BEDTIME 30 Days Qty: 30 RF: 0 Discharge Orders: Discharge ED (Routine); Ordered 02/08/21 Ordered By: Benjamin Stovall Discharge Diet: Advance as tolerated Discharge Activity: Resume usual activity Patient Instructions: Epilepsy (ED) Activity Restrictions/Additional Instructions: Please do not drive on your own, please do not bathe on your own, please do not swim on your own until you are seen by a neurologist or a PCP for your seizure. Our mental health case manager will have you follow-up with Neurologist and a primary care provider in the next few days. You would be expected to have a phone call with our mental health case manager who will put you on the schedule. Coding Level of Care Code ED Press Breaker for Daryl Trevino
[2021-02-08] MEDS: LORazepam 2 mg/mL INJ 1 mL IVP (06:45)
[2021-02-08] MEDS: sodium chloride 0.9% 1,000 ML 999 ML IV (06:45)
[2021-02-08 07:27] LABS: Basophils # 0.1 10^3/uL (0.0-0.1); Basophils % 1.3 %; Eosinophils # 0.1 10^3/uL (0.0-0.8); Eosinophils % 1.8 %; Hemoglobin 11.9 g/dL (11.5-15.3); Lymphocytes # 1.5 10^3/uL (0.8-4.8); Lymphocytes % 27.7 %; Mean Corpuscular HGB Conc 30.5 g/dL (30.0-36.0); Mean Corpuscular Hemoglobin 28.3 pg (28.0-34.0); Mean Corpuscular Volume 92.6 fl (81-99); Mean Platelet Volume 11.1 fL (7.4-10.4); Monocytes # 0.5 10^3/uL (0.2-0.9); Monocytes % 8.1 %; Neutrophils # 3.38 10^3/uL (1.8-7.7); Neutrophils % 60.7 %; Nucleated Red Blood Cells % 0 %; Platelet Count 332 10^3/cmm (130-400); Red Blood Count 4.21 10^6/uL (4.1-5.3); Red Cell Distribution Width 14.5 % (12.1-15.1); White Blood Count 5.6 10^3/uL (4.0-10.0)
[2021-02-08 07:37] LABS: Anion Gap 11.3 (5-19); Blood Urea Nitrogen 8 mg/dL (6-20); Calcium 8.6 mg/dL (8.5-10.5); Carbon Dioxide 29 mmol/L (22-29); Chloride 107 mmol/L (98-107); Glomerular Filtration Rate 113.1 mL/min (90-130); Glucose 105 mg/dL (65-115); Magnesium 1.8 mg/dL (1.7-2.3); Osmolality Calculated 295 mOsm/kg (285-295); Potassium 4.3 mmol/L (3.5-5.1); Sodium 143 mmol/L (136-145)
--- NOTE | 2021-02-08 10:34 | PC.NURSE ---
PATIENT RESTING IN BED. LIGHTS DIMMED. SEIZURE PRECAUTIONS FOLLOWED.
--- NOTE | 2021-02-08 12:19 | PC.NURSE ---
PATIENT MOVED TO [facility] BED. PATIENT STILL UNDER SEIZURE PRECAUTIONS.
--- NOTE | 2021-02-11 14:37 | DCPLANNER ---
manager bank had message to schedule a follow up appointment for patient with both Dr. Alvarado office and Dr. Delgado. manager bank called the office of Dr. Ruvalcaba, spoke with Lizz, gave clinic patients information. A follow up appointment was scheduled for Friday February 19, 2021 at 9:00 with CHARLENE Kaur. manager bank also sent patients information to the neurology clinic. Patients information will be printed and reviewed. Clinic will call patient with appointment information. manager bank called phone number [phone], unable to speak with patient at this time, a voicemail stated that this was a non working number. manager bank called Internal Medicine and cancelled the appointment, since I was unable to contact patient. A letter was mailed to the patient stating if they wanted to schedule an appointment to call classification case manager in the ER.
--- NOTE | 2021-02-18 07:42 | DCPLANNER ---
Patient has a follow up appointment scheduled for Friday, May 21, 2021 at 11:[address] Delgado. Clinic will call patient with appointment information.
== END 2021-02-08 13:20 | disposition home or self-care (01) ==
PROVIDERS: Emergency Provider Emergency Medicine
DX: R56.9 Unspecified convulsions (principal); F10.239 Alcohol dependence with withdrawal, unspecified; Z91.14 Patient's other noncompliance with medication regimen; Z59.00 Homelessness unspecified
CPT/HCPCS: 36416; 80048; 82962; 83735; 84702; 85025; 93005; 96365; 96366; 96375; 99284; J1953; J2060; J7030

== ENCOUNTER → 2021-02-13 08:51 | Outpatient (BNVA) | payer MEDICARE, MEDICAID, SELFPAY | PROVIDERS: Visit Provider Social Worker | DX: F32.9 Major depressive disorder, single episode, unspecified (principal); F19.10 Other psychoactive substance abuse, uncomplicated; Z78.9 Other specified health status | CPT/HCPCS: 90837; 90834 ==

== ENCOUNTER → 2021-02-18 07:47 | Outpatient (BNVA) | payer MEDICARE, MEDICAID, SELFPAY | PROVIDERS: Visit Provider Social Worker | DX: F32.9 Major depressive disorder, single episode, unspecified (principal); F19.10 Other psychoactive substance abuse, uncomplicated; Z78.9 Other specified health status | CPT/HCPCS: 90832 ==

== ENCOUNTER → 2021-03-14 07:51 | Outpatient (BNVA) | payer MEDICARE, MEDICAID, SELFPAY | PROVIDERS: Visit Provider Social Worker | DX: F19.10 Other psychoactive substance abuse, uncomplicated; F32.89 Other specified depressive episodes | CPT/HCPCS: 90834 ==

== ENCOUNTER → 2021-03-24 07:57 | Outpatient (BNVA) | payer MEDICARE, MEDICAID, SELFPAY | PROVIDERS: Visit Provider Social Worker | DX: F32.9 Major depressive disorder, single episode, unspecified (principal); F19.10 Other psychoactive substance abuse, uncomplicated | CPT/HCPCS: 90834 ==

== ENCOUNTER → 2021-03-31 07:45 | Outpatient (BNVA) | payer MEDICARE, MEDICAID, SELFPAY | PROVIDERS: Visit Provider Social Worker | DX: F32.9 Major depressive disorder, single episode, unspecified (principal); F19.10 Other psychoactive substance abuse, uncomplicated | CPT/HCPCS: 90837; 90834 ==

== ENCOUNTER → 2021-04-08 07:25 | Outpatient (BNVA) | payer MEDICARE, MEDICAID, SELFPAY | PROVIDERS: Visit Provider Social Worker | DX: F32.9 Major depressive disorder, single episode, unspecified (principal); F19.10 Other psychoactive substance abuse, uncomplicated; Z78.9 Other specified health status | CPT/HCPCS: 90837; 90834 ==

== ENCOUNTER → 2021-04-16 08:17 | Outpatient (BNVA) | payer MEDICARE, MEDICAID, SELFPAY | PROVIDERS: Visit Provider Social Worker | DX: F32.9 Major depressive disorder, single episode, unspecified (principal); F19.10 Other psychoactive substance abuse, uncomplicated; Z78.9 Other specified health status | CPT/HCPCS: 90834; 90832 ==

== ENCOUNTER → 2021-04-23 07:30 | Outpatient (BNVA) | payer MEDICARE, MEDICAID, SELFPAY | PROVIDERS: PCP Registered Nurse; Visit Provider Social Worker | DX: F32.9 Major depressive disorder, single episode, unspecified (principal); F19.10 Other psychoactive substance abuse, uncomplicated; Z78.9 Other specified health status | CPT/HCPCS: 90837; 80053; 84443; 85025; 90834 ==

== ENCOUNTER 2021-04-25 14:33 | Outpatient (CLI) | payer MEDICARE, MEDICAID, SELFPAY ==
--- NOTE | 2021-04-25 14:30 | USCV_ITS ---
Kailee Huang Age: 36 Gender: F : 1985 Exam Date: 04/25/2021 15:26 Ordering Phys: Skyler Morgan Technologist: YOEL Exam Location: [facility] Indication: LEFT LOWER EXTREMITY PAIN AND SWELLING PROCEDURES: Venous duplex imaging was performed in only the left lower extremity. The following venous structures were evaluated: common femoral vein, profunda vein, proximal portion of the greater saphenous vein, superficial femoral vein, and the popliteal vein. In addition, the posterior tibial and peroneal trunk were evaluated. Serial compression, augmentation maneuvers, and spectral Doppler flow evaluation were performed. FINDINGS: There does not appear to be dvt in the left lower extremity at this time. There does appear to possibly be old clot or partial clot located within the left gsv at the location of the hc. CONCLUSIONS No evidence of acute left lower extremity DVT. Web like Chronic appearing thrombus left greater saphenous vein above the knee at [facility] Medical Technician Assistant Called and gave pre santiago to Amee at Noé Morgan's office at time of exam. Jm Williamson MD (Electronically Signed) Final Date: 25 April 2021 17:25 S
== END 2021-04-25 14:34 | disposition home or self-care (01) ==
LOC: RAD 14:41
PROVIDERS: PCP Registered Nurse; Visit Provider Registered Nurse
DX: M79.89 Other specified soft tissue disorders (principal); M79.605 Pain in left leg
CPT/HCPCS: 93971

== ENCOUNTER → 2021-05-01 10:31 | Outpatient (BNVA) | payer MEDICARE, MEDICAID, SELFPAY | PROVIDERS: PCP Registered Nurse; Visit Provider Social Worker | DX: F32.9 Major depressive disorder, single episode, unspecified (principal); F19.10 Other psychoactive substance abuse, uncomplicated; Z78.9 Other specified health status | CPT/HCPCS: 90837; 90834 ==

== ENCOUNTER → 2021-05-21 10:53 | Outpatient (BNVA) | payer MEDICARE, MEDICAID, SELFPAY | PROVIDERS: PCP Registered Nurse; Visit Provider Specialist | DX: G40.909 Epilepsy, unspecified, not intractable, without status epilepticus (principal); I69.954 Hemiplegia and hemiparesis following unspecified cerebrovascular disease affecting left non-dominant side; F19.11 Other psychoactive substance abuse, in remission | CPT/HCPCS: 99204; 99205 ==

== ENCOUNTER → 2021-05-29 08:11 | Outpatient (BNVA) | payer MEDICARE, MEDICAID, SELFPAY | PROVIDERS: PCP Registered Nurse; Visit Provider Social Worker | DX: F43.10 Post-traumatic stress disorder, unspecified (principal); F41.9 Anxiety disorder, unspecified | CPT/HCPCS: 90832 ==

== ENCOUNTER → 2021-06-10 08:27 | Outpatient (BNVA) | payer MEDICARE, MEDICAID, SELFPAY | PROVIDERS: PCP Registered Nurse; Visit Provider Social Worker | DX: F43.10 Post-traumatic stress disorder, unspecified (principal); F41.9 Anxiety disorder, unspecified | CPT/HCPCS: 90837; 90834 ==

== ENCOUNTER → 2021-06-30 08:05 | Outpatient (BNVA) | payer MEDICARE, MEDICAID, SELFPAY | PROVIDERS: PCP Registered Nurse; Visit Provider Social Worker | DX: F43.12 Post-traumatic stress disorder, chronic (principal); F41.9 Anxiety disorder, unspecified | CPT/HCPCS: 90834 ==

== ENCOUNTER 2021-07-07 06:34 | Outpatient (CLI) | payer MEDICARE, MEDICAID, SELFPAY ==
--- NOTE | 2021-07-07 07:15 | MR_ITS ---
WS: [id number] MRI HEAD WITHOUT CONTRAST TECHNIQUE: Sagittal T1, T2 axial, T2 axial FLAIR, axial and coronal T1 images, axial susceptibility w eighted imaging, axial diffusion weighted images, and coronal T2 images were obtained. CLINICAL INFORMATION: G40.909 - Epilepsy, unspecified, not intractable, without... COMPARISON: CT December 29 FINDINGS: No evidence of restricted diffusion to suggest acute ischemia. Ventricular system and basal cisterns are patent. Prior postoperative changes RIGHT frontoparietal and temporal craniotomy. Underlying ence phalomalacia and gliosis in the RIGHT frontal, posterior parietal, and temporal lobe. Ex vacuo dilata tion RIGHT lateral ventricle. Normal posterior fossa. Normal vascular flow voids at the skull base. No extra-axial fluid collection s. Wallerian degeneration RIGHT midbrain. Paranasal sinuses and mastoid air cells well aerated. No he mosiderin on the susceptibility weighted images. Normal optic chiasm and pituitary infundibulum. Normal LEFT temporal lobe and hippocampal formation. Chronic encephalomalacia and gliosis in the RIGH T anterior temporal lobe with moderate atrophy of the hippocampus and perihippocampal gyrus. Ex vacuo dilatation RIGHT lateral ventricle. Mild periventricular white matter changes in the LEFT periventricular white matter. MR/MR head wo con* [id number] IMPRESSION: 1. Prior postoperative changes RIGHT frontoparietal temporal craniotomy associ ated encephalomalacia and gliosis in the underlying RIGHT frontal, posterior pa rietal, and RIGHT temporal lobes extending into the anterior temporal lobe. 2. Chronic ex vacuo dilatation RIGHT lateral ventricle is unchanged. Wallerian degeneration RIGHT midbrain. 3. Normal LEFT anterior temporal lobe and hippocampus. Moderate atrophy RIGHT temporal lobe and hippocampal formation. 4. Mild LEFT periventricular supratentorial white matter changes. 5. No hemosiderin on susceptibly weighted images.
== END 2021-07-07 06:35 | disposition home or self-care (01) ==
LOC: RAD 06:34
PROVIDERS: PCP Registered Nurse; Visit Provider Specialist
DX: G40.909 Epilepsy, unspecified, not intractable, without status epilepticus (principal)
CPT/HCPCS: 70551

== ENCOUNTER → 2021-07-08 07:37 | Outpatient (BNVA) | payer MEDICARE, MEDICAID, SELFPAY | PROVIDERS: PCP Registered Nurse; Visit Provider Social Worker | DX: F43.12 Post-traumatic stress disorder, chronic (principal); F41.9 Anxiety disorder, unspecified; F19.10 Other psychoactive substance abuse, uncomplicated | CPT/HCPCS: 90837; 90834 ==

== ENCOUNTER → 2021-07-09 11:00 | Outpatient (BNVA) | payer MEDICARE, MEDICAID, SELFPAY | PROVIDERS: PCP Registered Nurse; Visit Provider Registered Nurse | DX: Z01.419 Encounter for gynecological examination (general) (routine) without abnormal findings (principal); K59.00 Constipation, unspecified | CPT/HCPCS: 81000; 87070; 87205; 88175 ==

== ENCOUNTER → 2021-07-10 09:24 | Outpatient (BNVA) | payer MEDICARE, MEDICAID, SELFPAY | PROVIDERS: PCP Registered Nurse; Visit Provider Specialist | DX: I69.954 Hemiplegia and hemiparesis following unspecified cerebrovascular disease affecting left non-dominant side (principal); G43.019 Migraine without aura, intractable, without status migrainosus; F17.210 Nicotine dependence, cigarettes, uncomplicated | CPT/HCPCS: 64642; 64644; 99213; 99214; J0585 ==

== ENCOUNTER → 2021-07-14 08:01 | Outpatient (BNVA) | payer MEDICARE, MEDICAID, SELFPAY | PROVIDERS: PCP Registered Nurse; Visit Provider Social Worker | DX: F43.10 Post-traumatic stress disorder, unspecified (principal); F41.9 Anxiety disorder, unspecified; F19.10 Other psychoactive substance abuse, uncomplicated | CPT/HCPCS: 90834 ==

== ENCOUNTER → 2021-07-21 07:39 | Outpatient (BNVA) | payer MEDICARE, MEDICAID, SELFPAY | PROVIDERS: PCP Registered Nurse; Visit Provider Social Worker | DX: F43.12 Post-traumatic stress disorder, chronic (principal); F41.9 Anxiety disorder, unspecified; F19.10 Other psychoactive substance abuse, uncomplicated | CPT/HCPCS: 90832 ==

== ENCOUNTER → 2021-07-28 07:49 | Outpatient (BNVA) | payer MEDICARE, MEDICAID, SELFPAY | PROVIDERS: PCP Registered Nurse; Visit Provider Social Worker | DX: F43.10 Post-traumatic stress disorder, unspecified (principal); F41.9 Anxiety disorder, unspecified | CPT/HCPCS: 90834 ==

== ENCOUNTER → 2021-08-05 08:05 | Outpatient (BNVA) | payer MEDICARE, MEDICAID, SELFPAY | PROVIDERS: PCP Registered Nurse; Visit Provider Social Worker | DX: F41.1 Generalized anxiety disorder (principal); F43.12 Post-traumatic stress disorder, chronic; F41.9 Anxiety disorder, unspecified; N39.0 Urinary tract infection, site not specified | CPT/HCPCS: 90834; 81000; 87077; 87086; 87184 ==

== ENCOUNTER → 2021-08-20 07:24 | Outpatient (BNVA) | payer MEDICARE, MEDICAID, SELFPAY | PROVIDERS: PCP Registered Nurse; Visit Provider Social Worker | DX: F43.10 Post-traumatic stress disorder, unspecified (principal); F41.9 Anxiety disorder, unspecified; F41.1 Generalized anxiety disorder; F43.12 Post-traumatic stress disorder, chronic; F15.21 Other stimulant dependence, in remission | CPT/HCPCS: 90832 ==

== ENCOUNTER → 2021-08-27 07:26 | Outpatient (BNVA) | payer MEDICARE, MEDICAID, SELFPAY | PROVIDERS: PCP Registered Nurse; Visit Provider Social Worker | DX: F43.12 Post-traumatic stress disorder, chronic (principal); F41.9 Anxiety disorder, unspecified; F41.1 Generalized anxiety disorder; F43.10 Post-traumatic stress disorder, unspecified | CPT/HCPCS: 90837; 90834 ==

== ENCOUNTER → 2021-09-09 07:34 | Outpatient (BNVA) | payer MEDICARE, MEDICAID, SELFPAY | PROVIDERS: PCP Registered Nurse; Visit Provider Social Worker | DX: F43.10 Post-traumatic stress disorder, unspecified (principal); F41.9 Anxiety disorder, unspecified; F41.1 Generalized anxiety disorder | CPT/HCPCS: 90834 ==

== ENCOUNTER → 2021-09-16 07:32 | Outpatient (BNVA) | payer MEDICARE, MEDICAID, SELFPAY | PROVIDERS: PCP Registered Nurse; Visit Provider Social Worker | DX: F43.12 Post-traumatic stress disorder, chronic (principal); F41.9 Anxiety disorder, unspecified; F41.1 Generalized anxiety disorder; F15.21 Other stimulant dependence, in remission; F12.11 Cannabis abuse, in remission | CPT/HCPCS: 90834 ==

== ENCOUNTER → 2021-10-08 11:12 | Outpatient (BNVA) | payer MEDICARE, MEDICAID, SELFPAY | PROVIDERS: PCP Registered Nurse; Visit Provider Registered Nurse | DX: B37.2 Candidiasis of skin and nail (principal); G43.019 Migraine without aura, intractable, without status migrainosus; F41.9 Anxiety disorder, unspecified; E55.9 Vitamin D deficiency, unspecified; K21.9 Gastro-esophageal reflux disease without esophagitis; H10.10 Acute atopic conjunctivitis, unspecified eye | CPT/HCPCS: 80053; 82306; 82607; 84443; 85025 ==

== ENCOUNTER → 2021-12-04 14:38 | Outpatient (BNVA) | payer MEDICARE, MEDICAID, SELFPAY | PROVIDERS: PCP Registered Nurse; Visit Provider Registered Nurse | DX: R39.9 Unspecified symptoms and signs involving the genitourinary system (principal) | CPT/HCPCS: 81000; 87086 ==

== ENCOUNTER → 2021-12-09 11:02 | Outpatient (BNVA) | payer OTHER, SELFPAY | PROVIDERS: PCP Registered Nurse; Visit Provider Psychiatry & Neurology Psychiatry | DX: F32.9 Major depressive disorder, single episode, unspecified (principal) | CPT/HCPCS: 80061; 83036 ==

== ENCOUNTER 2021-12-27 19:02 | Emergency (ER) | payer MEDICARE, MEDICAID, SELFPAY ==
[2021-12-10 09:22] VITALS: BP 140/74; BMI 46.7
[2021-12-27 19:06] VITALS: BP 150/75; PULSE 93; RESP 18; TEMP 37.2; O2SAT 99
--- NOTE | 2021-12-27 19:09 | XRR_ITS ---
PROCEDURE INFORMATION: Exam: XR Left Tibia and Fibula Exam date and time: 12/27/2021 7:36 PM Age: 36 years old Clinical indication: Injury or trauma; Fall; Blunt trauma; Lower leg; Left; Additional info: Pain after fall in hemiplegic TECHNIQUE: Imaging protocol: Radiologic exam of the Left tibia and fibula. Views: 2 views. COMPARISON: CR (LOW EXM, ) 12/27/2021 7:30 PM FINDINGS: Bones/joints: Normal. Soft tissues: Normal. XR/XR tibia fibula LT 2V [id number] IMPRESSION: No acute findings.
--- NOTE | 2021-12-27 19:09 | XRR_ITS ---
PROCEDURE INFORMATION: Exam: XR Left Shoulder Exam date and time: 12/27/2021 7:55 PM Age: 36 years old Clinical indication: Injury or trauma; Fall; Blunt trauma (contusions or hematomas); Shoulder; Bilateral; Additional info: Shoulder pain left after fall- patient with hemiplegia TECHNIQUE: Imaging protocol: Radiologic exam of the Left shoulder. Views: 2 or more views. COMPARISON: [place] [id number] 12/29/2020 11:59 AM FINDINGS: Bones/joints: Normal. Soft tissues: Normal. XR/XR shoulder LT min 2V* [id number] IMPRESSION: No acute findings.
--- NOTE | 2021-12-27 19:09 | XRR_ITS ---
PROCEDURE INFORMATION: Exam: XR Left Elbow Exam date and time: 12/27/2021 7:59 PM Age: 36 years old Clinical indication: Injury or trauma; Other: Hemiplegic fall; Additional info: Elbow pain TECHNIQUE: Imaging protocol: Radiologic exam of the Left elbow. Views: 1 or 2 views. COMPARISON: CR (CHEST, ) 12/27/2021 7:55 PM FINDINGS: Bones/joints: Normal. Soft tissues: Normal. XR/XR elbow LT 2V [id number] IMPRESSION: No acute findings.
--- NOTE | 2021-12-27 19:09 | XRR_ITS ---
PROCEDURE INFORMATION: Exam: XR Left Knee Exam date and time: 12/27/2021 7:40 PM Age: 36 years old Clinical indication: Injury or trauma; Blunt trauma; Knee; Injury details: Hemiplegic fall- left sided pain; Additional info: Knee pain S/P fall TECHNIQUE: Imaging protocol: Radiologic exam of the Left knee. Views: 1 or 2 views. COMPARISON: CR (LOW EXM, ) 12/27/2021 7:36 PM FINDINGS: Bones/joints: Normal. Soft tissues: Normal. XR/XR knee LT 1-2V [id number] IMPRESSION: No acute findings.
--- NOTE | 2021-12-27 19:09 | XRR_ITS ---
PROCEDURE INFORMATION: Exam: XR Left Hip Exam date and time: 12/27/2021 7:47 PM Age: 36 years old Clinical indication: Injury or trauma; Fall; Blunt trauma (contusions or hematomas); Left; Hip; Additional info: Hip pain S/P fall in hemiplegic patient TECHNIQUE: Imaging protocol: Radiologic exam of the Left hip. Views: 2 or 3 views hip with pelvis when performed. COMPARISON: No relevant prior studies available. FINDINGS: Bones/joints: Unremarkable. No acute fracture. Soft tissues: Unremarkable. XR/XR hip LT 2-3V wo/w pel* [id number] IMPRESSION: No acute findings.
--- NOTE | 2021-12-27 19:09 | XRR_ITS ---
PROCEDURE INFORMATION: Exam: XR Left Foot Exam date and time: 12/27/2021 7:30 PM Age: 36 years old Clinical indication: Injury or trauma; Sprain or strain; Bilateral; Injury details: Hemiplegic fall, left foot pain and swelling TECHNIQUE: Imaging protocol: Radiologic exam of the Left foot. Views: 3 or more views. COMPARISON: No relevant prior studies available. FINDINGS: Bones/joints: Normal. Soft tissues: Normal. XR/XR foot LT min 3V* [id number] IMPRESSION: No acute findings.
--- NOTE | 2021-12-27 19:10 | CTR_ITS ---
PROCEDURE INFORMATION: Exam: CT Head Without Contrast Exam date and time: 12/27/2021 7:22 PM Age: 36 years old Clinical indication: Injury or trauma; Fall; Blunt trauma (contusions or hematomas); Prior surgery; Surgery date: 6+ months; Surgery type: Craniotomy TECHNIQUE: Imaging protocol: Computed tomography of the head without contrast. Radiation optimization: All CT scans at this facility use at least one of these dose optimization techniques: automated exposure control; mA and/or kV adjustment per patient size (includes targeted exams where dose is matched to clinical indication); or iterative reconstruction. COMPARISON: MR head wo con* [id number] 07/07/2021 7:32 AM RADIATION DOSE METRICS: Total DLP (mGy-cm): 59920.48 FINDINGS: Brain: Right craniotomy changes with right frontal parietal temporal lobe chronic encephalomalacia. Cerebral ventricles: No ventriculomegaly. Paranasal sinuses: Visualized sinuses are unremarkable. No fluid levels. Mastoid air cells: Visualized mastoid air cells are well aerated. Bones/joints: See Brain finding. Soft tissues: Unremarkable. CT/CT head wo con* [id number] IMPRESSION: 1. Negative for intracranial hemorrhage or mass effect. 2. Right craniotomy changes with right frontal parietal temporal lobe chronic encephalomalacia.
--- NOTE | 2021-12-27 19:18 | ED_ITS ---
HPI - General Adult General: Chief complaint: Extremity Injury, Lower Stated complaint: PAIN IN LEFT LEG Time Seen by Provider: 12/27/21 19:09 History of Present Illness: Patient is a 36-year-old female with a history of prior CVA and L sided residual weakness, and depression presenting to the emergency room for evaluation of fall earlier today. Patient tells me that she was walking earlier today and landed on the lateral aspect of her left foot. Since then patient has been having left foot pain. Patient reports falling hitting her head. Patient is most left shoulder left hip, left knee, left tib- fib left ankle and left foot pain. Patient is not on any anticoagulation. P crow tells me that she think that this is likely mechanical fall. Patient denies any associate chest pain, shortness breath, palpitation or lightheadedness prior to the episode of fall. Since then, patient has been unable to bear weight after the fall. Denies nausea/vomiting, fever/chill, chest pain, shortness of breath, abdominal pain, dysuria/hematuria/polyuria, diarrhea/melena/hematochezia. Onset:145pm Duration:ongoing Location:home Severity:moderate Associated symptoms: Reports headache(s); Deny chest pain, dyspnea, nausea, rash, palpitations or vomiting Review of Systems Const: Denies: fever(s) or chills Eyes: Denies: change in vision ENMT: Denies: mouth pain Card: Denies: chest pain or palpitations Resp: Denies: dyspnea or non-productive cough GI: Denies: abdominal pain, nausea, vomiting or diarrhea : Denies: dysuria Musc: Reports: extremity pain (+ Left foot , left knee, left hip, left shoulder pain) Skin/Breast: Denies: rash or new lesions Neuro: Reports: headache(s); Denies: weakness in extremities Psych: Reports: other (Normal mood) Jorge/Lymph: Denies: easy bruising PFSH ED PFSH: Medical History History of CVA (cerebrovascular accident) History of incarceration Homeless MDD (major depressive disorder) Psychiatric care Seizure disorder First seizure 2018 due to drug use Substance abuse Surgical History History of bilateral tubal ligation Hx of section Family History Other Chronic kidney disease (CKD) Diabetes MDD (major depressive disorder) Psychiatric illness Social History Smoking and tobacco status: current some day smoker cigarettes Packs smoked per day: 1 Years cigarettes smoked: 1 Quit status (tobacco): not considering quitting Second hand smoke exposure: No Alcohol intake: current Alcohol intake frequency: few times a month Alcohol type: beer Adopted: No Caregiver/support person: Yes Lives independently: Yes Household members: significant other Housing: Manufactured/Mobile home Marital status: Legally Number of children: 4 Number of grandchildren: 2 Highest education level completed: Bachelor's Degree service: No Current occupational status: disabled Pets and animals: Yes Pets & animals: cat(s) and dog(s) History of recent travel: No Leisure activites: art, reading and other Leisure activities details: watch TV Sexually active: Yes Current gender identity: Male Shivani/Alevism: Apostolic Special shivani needs: No Agree to transfusion: Yes Financial difficulty paying for basics: Not Very Hard Physical Exam Const: COMMON NORMALS: alert HENMT: COMMON NORMALS: atraumatic HEAD & SCALP: atraumatic MOUTH: moist mucous membranes not abnormal Eye: COMMON NORMALS: EOMs intact bilaterally and conjunctivae normal CONJUNCTIVA: Yes conjunctivae normal Neck/C-Spine: COMMON NORMALS: full ROM and supple Resp: COMMON NORMALS: normal respiratory effort and clear to auscultation bi laterally AUSCULTATION: clear to auscultation bilaterally Cardio: COMMON NORMALS: regular rate RATE: regular rate GI: COMMON NORMALS: Soft to palpation and non-tender PALPATION: Yes Soft to palpation Extremity: NARRATIVE EXTREMITY EXAM: + Decreased range of motion of the left ankle due to pain, mild left ankle swelling, moderate tenderness palpation on the lateral aspect of the left foot, 2+ DP/PT pulses on the left lower extremity, decreased range of motion of the left knee due to pain, mild left hip tenderness palpation, Range of motion of the left shoulder intact, 2+ radial pulses on the left upper extremity, cap refill less than 3 seconds in all extremity Neuro: SENSORIUM/ORIENTATION: Yes alert MOTOR EXAM: No Abnormal motor strength present and Other motor observations present (no focal motor deficits) Psych: COMMON NORMALS: speech normal SPEECH: Yes normal speech MOOD & AFFECT: Yes euthymic mood Course Vital Signs: Vital signs: Vital Signs Temperature 99.0 F 12/27/21 19:06 Pulse Rate 93 12/27/21 19:06 Respiratory Rate 18 12/27/21 19:06 Blood Pressure 150/75 12/27/21 19:06 Pulse Oximetry 99 12/27/21 19:06 Oxygen Delivery Me thod 12/27/21 19:06 [facility] - General Adult Medical Decision Making Patient is a 36-year-old female with a history of prior CVA, and depression presenting to the emergency room for evaluation of fall earlier today. On physical exam, patient has decreased range of motion of the left ankle due to pain in left ankle and left foot tenderness palpation. Imaging study today showed no acute pathology. Patient foot was wrapped in by Bj wrap. Patient is given an outpatient wheelchair for leg elevation. I have given patient instruction for repeat x-ray in 1 week should she still have any persistent pain at that time since she may have occult fracture today. Patient agrees. Rx: norflex, tylenol, lidocaine patch, and menthol PRN pain Disposition: Discharge. Patient counseled regarding diagnostic impression, treatment plan. Patient given ED strict return precautions to return for continuation, worsening, or development of new symptoms. Instructed to f/u w/ PCP regarding symptoms today. Patient verbalized understanding. Lab Data Radiology Impressions Elbow X-Ray 12/27/21 19:09 IMPRESSION: No acute findings. Foot X-Ray 12/27/21 19:09 IMPRESSION: No acute findings. Hip/Pelvis X-Ray 12/27/21 19:09 IMPRESSION: No acute findings. Knee X-Ray 12/27/21 19:09 IMPRESSION: No acute findings. Shoulder X-Ray 12/27/21 19:09 IMPRESSION: No acute findings. Tibia/Fibula X-Ray 12/27/21 19:09 IMPRESSION: No acute findings. Head CT 12/27/21 19:10 IMPRESSION: 1. Negative for intracranial hemorrhage or mass effect. 2. Right craniotomy changes with right frontal parietal temporal lobe chronic encephalomalacia. Imaging Data Other Imaging: Radiologist's impression: [address] [place] [address] CT Scan Report Signed Patient: SalKailee Unit #: [id number] : 1985 Age/Sex: 36 / F ADM Date: 12/27/21 Loc: ER Room/Bed: Attending Dr: Ordering Provider/Ordering MD: Benjamin Stovall MD Date of Service: 12/27/21 Procedure(s): CT head wo con* [id number] Accession Number(s): [id number] Report Number: [id number] PROCEDURE INFORMATION: Exam: CT Head Without Contrast Exam date and time: 12/27/2021 7:22 PM Age: 36 years old Clinical indication: Injury or trauma; Fall; Blunt trauma (contusions or hematomas); Prior surgery; Surgery date: 6+ months; Surgery type: Craniotomy TECHNIQUE: Imaging protocol: Computed tomography of the head without contrast. Radiation optimization: All CT scans at this facility use at least one of these dose optimization techniques: automated exposure control; mA and/or kV adjustment per patient size (includes targeted exams where dose is matched to clinical indication); or iterative reconstruction. COMPARISON: MR head wo con* [id number] 07/07/2021 7:32 AM RADIATION DOSE METRICS: Total DLP (mGy-cm): 29397.48 FINDINGS: Brain: Right craniotomy changes with right frontal parietal temporal lobe chronic encephalomalacia. Cerebral ventricles: No ventriculomegaly. Paranasal sinuses: Visualized sinuses are unremarkable. No fluid levels. Mastoid air cells: Visualized mastoid air cells are well aerated. Bones/joints: See Brain finding. Soft tissues: Unremarkable. CT/CT head wo con* [id number] IMPRESSION: 1. Negative for intracranial hemorrhage or mass effect. 2. Right craniotomy changes with right frontal parietal temporal lobe chronic encephalomalacia. ? Dictated By: Wayne Rosario MD Signed By: Wayne Rosario MD Signed Date/Time: 12/27/212016 DD/ [address] [address] XRay Report Signed Patient: Kailee Huang Unit #: [id number] : 1985 Age/Sex: 36 / F ADM Date: 12/27/21 Loc: ER Room/Bed: Attending Dr: Ordering Provider/Ordering MD: Benjamin Stovall MD Date of Service: 12/27/21 Procedure(s): XR tibia fibula LT 2V 94055 Accession Number(s): [id number] Report Number: [id number] PROCEDURE INFORMATION: Exam: XR Left Tibia and Fibula Exam date and time: 12/27/2021 7:36 PM Age: 36 years old Clinical indication: Injury or trauma; Fall; Blunt trauma; Lower leg; Left; Additional info: Pain after fall in hemiplegic TECHNIQUE: Imaging protocol: Radiologic exam of the Left tibia and fibula. Views: 2 views. COMPARISON: CR (LOW EXM, ) 12/27/2021 7:30 PM FINDINGS: Bones/joints: Normal. Soft tissues: Normal. XR/XR tibia fibula LT 2V 14764 IMPRESSION: No acute findings. ? Dictated By: Wayne Rosario MD Signed By: Wayne Rosario MD Signed Date/Time: 12/27/212140 DD/ [address] [address] XRay Report Signed Patient: Kailee Huang Unit #: [id number] : 1985 Age/Sex: 36 / F ADM Date: 12/27/21 Loc: ER Room/Bed: Attending Dr: Ordering Provider/Ordering MD: Benjamin Stovall MD Date of Service: 12/27/21 Procedure(s): XR shoulder LT min 2V* [id number] Accession Number(s): [id number] Report Number: [id number] PROCEDURE INFORMATION: Exam: XR Left Shoulder Exam date and time: 12/27/2021 7:55 PM Age: 36 years old Clinical indication: Injury or trauma; Fall; Blunt trauma (contusions or hematomas); Shoulder; Bilateral; Additional info: Shoulder pain left after fall- patient with hemiplegia TECHNIQUE: Imaging protocol: Radiologic exam of the Left shoulder. Views: 2 or more views. COMPARISON: [place] [id number] 12/29/2020 11:59 AM FINDINGS: Bones/joints: Normal. Soft tissues: Normal. XR/XR shoulder LT min 2V* [id number] IMPRESSION: No acute findings. ? Dictated By: Wayne Rosario MD Signed By: Wayne Rosario MD Signed Date/Time: 12/27/212103 DD/ [address] [address] XRay Report Signed Patient: Kailee Huang Unit #: [id number] : 1985 Age/Sex: 36 / F ADM Date: 12/27/21 Loc: ER Room/Bed: Attending Dr: Ordering Provider/Ordering MD: Benjamin Stovall MD Date of Service: 12/27/21 Procedure(s): XR knee LT 1-2V 18846 Accession Number(s): [id number] Report Number: [id number] PROCEDURE INFORMATION: Exam: XR Left Knee Exam date and time: 12/27/2021 7:40 PM Age: 36 years old Clinical indication: Injury or trauma; Blunt trauma; Knee; Injury details: Hemiplegic fall- left sided pain; Additional info: Knee pain S/P fall TECHNIQUE: Imaging protocol: Radiologic exam of the Left knee. Views: 1 or 2 views. COMPARISON: CR (LOW EXM, ) 12/27/2021 7:36 PM FINDINGS: Bones/joints: Normal. Soft tissues: Normal. XR/XR knee LT 1-2V 64989 IMPRESSION: No acute findings. ? Dictated By: Tejas Tejeda MD Signed By: Tejas Tejeda MD Signed Date/Time: 12/27/212150 DD/ [address] [address] XRay Report Signed Patient: Kailee Huang Unit #: [id number] : 1985 Age/Sex: 36 / F ADM Date: 12/27/21 Loc: ER Room/Bed: Attending Dr: Ordering Provider/Ordering MD: Benjamin Stovall MD Date of Service: 12/27/21 Procedure(s): XR hip LT 2-3V wo/w pel* 81161 Accession Number(s): [id number] Report Number: [id number] PROCEDURE INFORMATION: Exam: XR Left Hip Exam date and time: 12/27/2021 7:47 PM Age: 36 years old Clinical indication: Injury or trauma; Fall; Blunt trauma (contusions or hematomas); Left; Hip; Additional info: Hip pain S/P fall in hemiplegic patient TECHNIQUE: Imaging protocol: Radiologic exam of the Left hip. Views: 2 or 3 views hip with pelvis when performed. COMPARISON: No relevant prior studies available. FINDINGS: Bones/joints: Unremarkable. No acute fracture. Soft tissues: Unremarkable. XR/XR hip LT 2-3V wo/w pel* 10086 IMPRESSION: No acute findings. ? Dictated By: Wayne Rosario MD Signed By: Wayne Rosario MD Signed Date/Time: 12/27/212140 DD/ [address] [address] XRay Report Signed Patient: Kailee Huang Unit #: [id number] : 1985 Age/Sex: 36 / F ADM Date: 12/27/21 Loc: ER Room/Bed: Attending Dr: Ordering Provider/Ordering MD: Benjamin Stovall MD Date of Service: 12/27/21 Procedure(s): XR foot LT min 3V* 85133 Accession Number(s): [id number] Report Number: [id number] PROCEDURE INFORMATION: Exam: XR Left Foot Exam date and time: 12/27/2021 7:30 PM Age: 36 years old Clinical indication: Injury or trauma; Sprain or strain; Bilateral; Injury details: Hemiplegic fall, left foot pain and swelling TECHNIQUE: Imaging protocol: Radiologic exam of the Left foot. Views: 3 or more views. COMPARISON: No relevant prior studies available. FINDINGS: Bones/joints: Normal. Soft tissues: Normal. XR/XR foot LT min 3V* [id number] IMPRESSION: No acute findings. ? Dictated By: Tejas Tejeda MD Signed By: Tejas Tejeda MD Signed Date/Time: 12/27/212150 DD/ [address] [address] XRay Report Signed Patient: Kailee Huang Unit #: [id number] : 1985 Age/Sex: 36 / F ADM Date: 12/27/21 Loc: ER Room/Bed: Attending Dr: Ordering Provider/Ordering MD: Benjamin Stovall MD Date of Service: 12/27/21 Procedure(s): XR elbow LT 2V 92790 Accession Number(s): [id number] Report Number: [id number] PROCEDURE INFORMATION: Exam: XR Left Elbow Exam date and time: 12/27/2021 7:59 PM Age: 36 years old Clinical indication: Injury or trauma; Other: Hemiplegic fall; Additional info: Elbow pain TECHNIQUE: Imaging protocol: Radiologic exam of the Left elbow. Views: 1 or 2 views. COMPARISON: CR (CHEST, ) 12/27/2021 7:55 PM FINDINGS: Bones/joints: Normal. Soft tissues: Normal. XR/XR elbow LT 2V 97587 IMPRESSION: No acute findings. ? Dictated By: Wayne Rosario MD Signed By: Wayne Rosario MD Signed Date/Time: 12/27/212057 DD/ 58 Discharge Plan Discharge Patient Disposition: Home Clinical Impression: Acute foot pain Condition: Stable Prescriptions: New acetaminophen 500 mg tablet 500 mg PO Q6H PRN (Reason: pain) 5 Days Qty: 20 0RF lidocaine 5 % adhesive patch,medicated 1 patch topical DAILY PRN (Reason: pain) 30 Days Qty: 30 0RF Rx Instructions: leave on most painful area for up to 12 hrs Biofreeze (menthol) 5 % gel 1 ea topical BID PRN (Reason: pain) 10 Days Qty: 1 0RF orphenadrine citrate 100 mg tablet extended release 100 mg PO BID PRN (Reason: pain) 10 Days Qty: 20 0RF No Action hydroxyzine pamoate 25 mg capsule 25 mg PO TID amitriptyline 100 mg tablet 200 mg PO BEDTIME docusate sodium [Colace] 100 mg capsule 100 mg PO BID 30 Days Qty: 60 2RF triamcinolone acetonide 0.1 % cream 1 applic topical BID PRN (Reason: yeast) 90 Days Qty: 80 0RF Rx Instructions: use as needed sumatriptan succinate [Imitrex] 50 mg tablet See Rx Instructions PO .COMPLEX Qty: 14 3RF Rx Instructions: take 1 tab at onset of headache; if no relief may repeat 1 tab after at least 2 hrs; max = 4 tabs/24 hr PO olopatadine [Pataday Once Daily Relief] 0.2 % drops 1 drp ophthalmic (eye) DAILY 30 Days Qty: 2.5 2RF Zyrtec 10 mg capsule 10 mg PO DAILY PRN (Reason: allergy symptoms) 90 Days Qty: 90 1RF diclofenac sodium [Arthritis Pain (diclofenac)] 1 % gel 4 g topical QID 30 Days Qty: 100 5RF Rx Instructions: apply to single knee, ankle, foot; for foot includes sole/toes/top of foot levetiracetam 750 mg tablet See Rx Instructions .ROUTE .COMPLEX Qty: 90 0RF Dose Instruction: TAKE 1 TABLET BY MOUTH DAILY Rx Instructions: TAKE 1 TABLET BY MOUTH DAILY varenicline 1 mg tablet 1 mg PO BID 30 Days Qty: 60 0RF Rx Instructions: will NOT need until 12/16 or after. Mail if need, but can not be picked up before. cholecalciferol (vitamin D3) 1,250 mcg (50,000 unit) capsule 1,250 mcg PO .once a week 90 Days Qty: 12 1RF nystatin 100,000 unit/gram powder 1 applic topical BID Qty: 60 12RF sucralfate 1 gram tablet See Rx Instructions .ROUTE .COMPLEX Qty: 60 0RF Dose Instruction: TAKE 1 TABLET BY MOUTH TWICE DAILY Rx Instructions: TAKE 1 TABLET BY MOUTH TWICE DAILY omeprazole 40 mg capsule,delayed release(DR/EC) See Rx Instructions .ROUTE .COMPLEX Qty: 30 0RF Dose Instruction: TAKE 1 CAPSULE BY MOUTH DAILY Rx Instructions: TAKE 1 CAPSULE BY MOUTH DAILY Klonopin 2 mg tablet 1 mg PO BID 30 Days Qty: 30 0RF Cymbalta 30 mg capsule,delayed release(DR/EC) 30 mg PO BID Qty: 60 0RF Discharge Orders: Discharge ED (Routine); Ordered 12/27/21 Ordered By: Benjamin Stovall Other Ambulatory Orders: DME: Wheelchair (Order) Location: None Selected Ordered By: Benjamin Stovall Referrals: Skyler Morgan, VIOLETTE [Primary Care Provider] - Patient Instructions: Pain Management Activity Restrictions/Additional Instructions: Come back if you have any new or concerning issues. Use your Bj wrap. Use our pain medicine as instructed for pain. Please repeat x-ray in 1 week if still having significant pain as there may be an occult fracture that we do not see today. Coding Level of Care Code ED Fire Hydrant Mechanic for Chg Fwd Exam Comprehensive
[2021-12-27] MEDS: ketorolac 30 mg/mL INJ IM (20:30)
[2021-12-27 23:40] VITALS: BP 150/75; PULSE 93; RESP 18; TEMP 37.2; O2SAT 99
== END 2021-12-27 23:00 | disposition home or self-care (01) ==
PROVIDERS: Emergency Provider Emergency Medicine; PCP Registered Nurse
DX: M79.672 Pain in left foot (principal); M25.572 Pain in left ankle and joints of left foot; Z86.73 Personal history of transient ischemic attack (TIA), and cerebral infarction without residual deficits
CPT/HCPCS: 70450; 73030; 73070; 73502; 73560; 73590; 73630; 96372; 99285; J1885

== ENCOUNTER 2022-02-08 22:50 | Emergency (ER) | payer MEDICARE, MEDICAID, SELFPAY ==
[2022-01-15 14:05] VITALS: BP 140/74; BMI 46.7
[2022-02-08 22:59] VITALS: BP 111/42; PULSE 94; RESP 16; TEMP 36.1; O2SAT 100
--- NOTE | 2022-02-08 23:33 | CTR_ITS ---
PROCEDURE INFORMATION: Exam: CT Head Without Contrast Exam date and time: 02/08/2022 11:42 PM Age: 36 years old Clinical indication: Injury or trauma; Fall; Blunt trauma (contusions or hematomas); Consciousness not specified; Prior surgery; Surgery date: 6+ months; Surgery type: Info not listed in chart; Additional info: Fall head inj TECHNIQUE: Imaging protocol: Computed tomography of the head without contrast. Radiation optimization: All CT scans at this facility use at least one of these dose optimization techniques: automated exposure control; mA and/or kV adjustment per patient size (includes targeted exams where dose is matched to clinical indication); or iterative reconstruction. COMPARISON: CT head wo con* [id number] 12/27/2021 7:22 PM RADIATION DOSE METRICS: Total DLP (mGy-cm): 1066.08 FINDINGS: Brain: There is no evidence of intracranial hemorrhage. Unremarkable white matter. No mass effect or midline shift. Redemonstration of right frontotemporoparietal encephalomalacia subjacent to a right craniotomy. This remains stable. Cerebral ventricles: The ventricles and sulci are appropriate for the patient's age. However, there is ex vacuo dilatation of the right lateral ventricle. Paranasal sinuses: There are no air-fluid levels. Mastoid air cells: The visualized mastoid air cells are well aerated. Bones/joints: Stable right frontotemporoparietal craniotomy. No acute fracture. Soft tissues: Unremarkable. CT/CT head wo con* [id number] IMPRESSION: No acute findings. Stable right frontal temporoparietal encephalomalacia subjacent to an old right craniotomy.
--- NOTE | 2022-02-08 23:33 | CTR_ITS ---
PROCEDURE INFORMATION: Exam: CT Cervical Spine Without Contrast Exam date and time: 02/08/2022 11:42 PM Age: 36 years old Clinical indication: Injury or trauma; Fall; Blunt trauma; Additional info: Fall neck inj TECHNIQUE: Imaging protocol: Computed tomography of the cervical spine without contrast. Radiation optimization: All CT scans at this facility use at least one of these dose optimization techniques: automated exposure control; mA and/or kV adjustment per patient size (includes targeted exams where dose is matched to clinical indication); or iterative reconstruction. COMPARISON: CT head wo con* [id number] 12/27/2021 7:22 PM RADIATION DOSE METRICS: Total DLP (mGy-cm): 349.2 FINDINGS: Bones/joints: No acute fracture. There is normal alignment. There is straightening of the normal cervical lordosis that may reflect muscle spasm or may be positional. Lungs: Lung apices are normal. Soft tissues: There are no paraspinal fluid collections or hematoma. CT/CT cervical spin wo con* [id number] IMPRESSION: 1. No evidence of acute fracture or acute traumatic subluxation. 2. Loss of the normal cervical lordosis.
--- NOTE | 2022-02-09 00:31 | XRR_ITS ---
PROCEDURE INFORMATION: Exam: XR Chest Exam date and time: 02/09/2022 12:50 AM Age: 36 years old Clinical indication: Injury or trauma; Fall; Blunt trauma (contusions or hematomas); Additional info: Fall chest/thoracic pain TECHNIQUE: Imaging protocol: Radiologic exam of the chest. Views: 1 view. COMPARISON: CR XR chest 1V portable [id number] 01/01/2021 6:27 PM FINDINGS: Lungs: There is incomplete lung expansion and crowding of the vascular markings. There are atelectatic changes at the right lung base. Pleural spaces: No pleural effusion or pneumothorax. Heart/Mediastinum: The heart is magnified by the elevated hemidiaphragms. Bones/joints: No acute fracture is identified. XR/XR chest 1V portable [id number] IMPRESSION: Atelectatic changes at the right lung base.
--- NOTE | 2022-02-09 01:28 | W.ED.FALL ---
HPI - Fall General: Chief Complaint: Fall Stated Complaint: fall Time Seen by Provider: 02/08/22 23:33 Source: patient History of Present Illness: 36-year-old likely intoxicated female with a fall in her closet tonight. She was sustained a head injury. She was not knocked out. No vomiting. She also complains of upper back pain and some neck pain. MD complaint: fall Onset (ago): hour(s) Fall from: standing Place fall occurred: home Loss of consciousness: None Prolonged down time: no Symptoms prior to fall: none Context: tripped/slipped Location of injury: head Severity: moderate Quality: throbbing Associated symptoms-after fall: Reports chest pain, headache(s), neck pain and other (Upper back pain); Denies abdominal pain, confusion, numbness or weakness Review of Systems Const: Denies: fever(s) Eyes: Denies: change in vision ENMT: Denies: throat pain Card: Reports: chest pain Resp: Denies: dyspnea GI: Denies: abdominal pain Musc: Reports: neck pain Neuro: Reports: headache(s); Denies: confusion PFSH ED PFSH: Medical History History of CVA (cerebrovascular accident) History of incarceration Homeless MDD (major depressive disorder) Psychiatric care Seizure disorder First seizure 2018 due to drug use Substance abuse Surgical History History of bilateral tubal ligation Hx of section Family History Other Chronic kidney disease (CKD) Diabetes MDD (major depressive disorder) Psychiatric illness Social History Smoking and tobacco status: current some day smoker cigarettes Packs smoked per day: 1 Years cigarettes smoked: 1 Quit status (tobacco): not considering quitting Second hand smoke exposure: No Alcohol intake: current Alcohol intake frequency: few times a month Alcohol type: beer Adopted: No Caregiver/support person: Yes Lives independently: Yes Household members: significant other Housing: Manufactured/Mobile home Marital status: Legally Number of children: 4 Number of grandchildren: 2 Highest education level completed: Bachelor's Degree service: No Current occupational status: disabled Pets and animals: Yes Pets & animals: cat(s) and dog(s) History of recent travel: No Leisure activites: art, reading and other Leisure activities details: watch TV Sexually active: Yes Current gender identity: Male Shivani/Roman Catholic: Apostolic Special shivani needs: No Agree to transfusion: Yes Financial difficulty paying for basics: Not Very Hard Physical Exam Const: COMMON NORMALS: no acute distress GENERAL APPEARANCE: not ill appearing and not frail appearing NUTRITIONAL APPEARANCE: obese HENMT: COMMON NORMALS: normocephalic and Normal external nose present HEAD & SCALP: normocephalic and hematoma (Forehead) NOSE: Normal external nose present and Normal nares present Eye: COMMON NORMALS: Equal, round and reactive pupils present and EOMs intact bilaterally PUPIL: Yes Equal, round and reactive pupils present Neck/C-Spine: COMMON NORMALS: full ROM GENERAL: Yes trachea midline CERVICAL SPINE: No Cervical spine tenderness Chest: COMMONS NORMALS: normal inspection of the chest CHEST: Yes Symmetrical chest wall rise Resp: COMMON NORMALS: normal respiratory effort, No use of accessory muscles and clear to auscultation bilaterally AUSCULTATION: clear to auscultation bilaterally Cardio: COMMON NORMALS: regular rate and regular rhythm RATE: regular rate RHYTHM: regular rhythm GI: COMMON NORMALS: Normal to inspection, nondistended, normoactive bowel sounds present, Soft to palpation and non-tender PALPATION: Yes Soft to palpation Back/Pelvis: COMMON NORMALS: thoracic and lumbar spine normal to inspection and no thoracic nor lumbar tenderness (Nonreproducible) Extremity: NARRATIVE EXTREMITY EXAM: Atraumatic Neuro: TOMÁS COMA SCALE: document GCS findings [place] coma scale eye opening: To sound Tomás coma scale verbal response: Orientated [place] coma scale motor response: Obey commands [place] coma scale total score: 14 Psych: COMMON NORMALS: cooperative Course Vital Signs: Vital signs: Vital Signs Temperature 97.0 F L 02/08/22 22:59 Pulse Rate 94 02/08/22 22:59 Respiratory Rate 16 02/08/22 22:59 Blood Pressure 111/42 02/08/22 22:59 Pulse Oximetry 100 02/08/22 22:59 Oxygen Delivery Me thod 02/08/22 22:59 MDM - Fall Medical Decision Making Head and cervical spine CTs are negative for acute change. Chest x-ray does not reveal any rib fractures, or pneumothorax. She will be allowed discharge. She is quite somnolent in the bed, although she awakens and answers appropriately. Her speech is a bit slurred. This is likely from intoxication. Lab Data Radiology Impressions Cervical Spine CT 02/08/22 23:33 IMPRESSION: 1. No evidence of acute fracture or acute traumatic subluxation. 2. Loss of the normal cervical lordosis. Head CT 02/08/22 23:33 IMPRESSION: No acute findings. Stable right frontal temporoparietal encephalomalacia subjacent to an old right craniotomy. Chest X-Ray 02/09/22 00:31 IMPRESSION: Atelectatic changes at the right lung base. Discharge Plan Discharge Patient Disposition: Home Condition: Stable Prescriptions: New ketorolac 10 mg tablet 10 mg PO TID PRN (Reason: pain) Qty: 10 0RF No Action hydroxyzine pamoate 25 mg capsule 25 mg PO TID amitriptyline 100 mg tablet 200 mg PO BEDTIME docusate sodium [Colace] 100 mg capsule 100 mg PO BID 30 Days Qty: 60 2RF triamcinolone acetonide 0.1 % cream 1 applic topical BID PRN (Reason: yeast) 90 Days Qty: 80 0RF Rx Instructions: use as needed albuterol sulfate [ProAir HFA] 90 mcg/actuation HFA aerosol inhaler 1 inh inhalation QID 30 Days Qty: 8.5 0RF varenicline 1 mg tablet 1 mg PO BID 30 Days Qty: 60 0RF sumatriptan succinate [Imitrex] 50 mg tablet See Rx Instructions PO .COMPLEX Qty: 14 3RF Rx Instructions: take 1 tab at onset of headache; if no relief may repeat 1 tab after at least 2 hrs; max = 4 tabs/24 hr PO olopatadine [Pataday Once Daily Relief] 0.2 % drops 1 drp ophthalmic (eye) DAILY 30 Days Qty: 2.5 2RF Zyrtec 10 mg capsule 10 mg PO DAILY PRN (Reason: allergy symptoms) 90 Days Qty: 90 1RF diclofenac sodium [Arthritis Pain (diclofenac)] 1 % gel 4 g topical QID 30 Days Qty: 100 5RF Rx Instructions: apply to single knee, ankle, foot; for foot includes sole/toes/top of foot cholecalciferol (vitamin D3) 1,250 mcg (50,000 unit) capsule 1,250 mcg PO .once a week 90 Days Qty: 12 1RF nystatin 100,000 unit/gram powder 1 applic topical BID Qty: 60 12RF omeprazole 40 mg capsule,delayed release(DR/EC) See Rx Instructions .ROUTE .COMPLEX Qty: 30 0RF Dose Instruction: TAKE 1 CAPSULE BY MOUTH DAILY Rx Instructions: TAKE 1 CAPSULE BY MOUTH DAILY levetiracetam 750 mg tablet See Rx Instructions .ROUTE .COMPLEX Qty: 90 0RF Dose Instruction: TAKE 1 TABLET BY MOUTH DAILY Rx Instructions: TAKE 1 TABLET BY MOUTH DAILY sucralfate 1 gram tablet See Rx Instructions .ROUTE .COMPLEX Qty: 60 0RF Dose Instruction: TAKE 1 TABLET BY MOUTH TWICE DAILY Rx Instructions: TAKE 1 TABLET BY MOUTH TWICE DAILY Klonopin 2 mg tablet 1 mg PO BID 30 Days Qty: 30 0RF Cymbalta 30 mg capsule,delayed release(DR/EC) 30 mg PO BID Qty: 60 0RF Discharge Orders: Discharge ED (Routine); Ordered 02/09/22 Ordered By: Kentrell Matos Referrals: Skyler Morgan, [facility] [Primary Care Provider] - 4-7 days Patient Instructions: Concussion (ED), Scalp Contusion in Adults (ED) Activity Restrictions/Additional Instructions: Return for vomiting, worsening mental status, other concerning symptoms. Medication as needed. Coding Level of Care Code ED Cable Machine Operator for Daryl Trevino
[2022-02-09 06:20] VITALS: RESP 16; O2SAT 98
== END 2022-02-09 06:22 | disposition home or self-care (01) ==
PROVIDERS: Emergency Provider Emergency Medicine; PCP Registered Nurse
DX: S00.83XA Contusion of other part of head, initial encounter (principal); Z86.73 Personal history of transient ischemic attack (TIA), and cerebral infarction without residual deficits; F17.210 Nicotine dependence, cigarettes, uncomplicated; W19.XXXA Unspecified fall, initial encounter
CPT/HCPCS: 70450; 71045; 72125; 99284